=== PATIENT | female | born 1955 | race Caucasian/White ===

== ENCOUNTER 2018-07-21 13:39 | Outpatient (CLI) | payer OTHER ==
--- NOTE | 2018-07-21 15:35 | ULT ---
BILATERAL CAROTID DUPLEX ULTRASOUND: HISTORY: TIA. FINDINGS: A small amount of plaque is seen in the carotid bulbs. The peak systolic velocity in the right ICA measures 85 cm/s with an end-diastolic velocity of 26 cm/ s and a systolic ratio of 0.84. The peak systolic velocity in the left ICA measures 68 cm/s with an end-diastolic velocity of 19 cm/s and a systolic ratio of 0.86. Flow in both vertebral arteries remains antegrade. IMPRESSION: No evidence of hemodynamically significant stenosis. POS: [facility]
== END 2018-07-21 13:40 | disposition home or self-care (01) ==
LOC: ULT 13:39
PROVIDERS: ATTEND Family Medicine
DX: G45.9 Transient cerebral ischemic attack, unspecified (principal); I08.1 Rheumatic disorders of both mitral and tricuspid valves; I31.3 Pericardial effusion (noninflammatory)
CPT/HCPCS: 93306; 93880

== ENCOUNTER 2018-10-12 09:59 | Emergency (ER) | payer OTHER, SELFPAY ==
[2018-10-12 10:33] LABS: Bilirubin Negative (Negative); Blood, Urine Negative (Negative); Clarity CLEAR (Clear); Glucose, Urine (Dipstick) Negative (Negative); Leukocyte Moderate (Negative); Nitrite Negative (Negative); Protein, Urine (Dipstick) Negative (Neg-Trace); Specific Gravity, Urine 1.004 (1.002-1.036); Urobilinogen 0.2 mg/dL (0.2-1.0); pH, Urine 7.5 (5.0-9.0)
[2018-10-12 10:34] LABS: Bacteria/HPF None Seen HPF (None Seen); Hyaline Casts/LPF 0-3 HYALINE CAST LPF (0-3 Hyaline); RBC/HPF 0-3 HPF (0-3); Squamous Epithelial 0-3 HPF (0-3)
--- NOTE | 2018-10-12 11:48 | CT ---
CT LUMBAR SPINE NONCONTRAST: 10/12/2018 HISTORY: A 63-year-old female with low back pain and right lumbar radiculopathy. COMPARISON: None. FINDINGS: The right kidney is atrophic. Minimally dilated left renal collecting system. There are five lumbar type vertebrae. Vertebral body heights are maintained. Mild disk space narrowing at L4-L5. Modera te disk space narrowing at L5-S1. The rest of the disk spaces are maintained. No large endplate mar ginal osteophytes. T12-L1: Normal. L1-L2: Essentially normal. L2-L3: Mild degenerative facet changes. No high-grade central or neural foraminal stenosis. Mild d iffuse disk bulge. L3-L4: Mild diffuse disk bulge. Mild to moderate ligamentum flavum thickening. Mild to moderate bi lateral degenerative facet hypertrophy. Mild central spinal canal stenosis. Mild bilateral neural f oraminal stenosis. L4-L5: Very severe bilateral degenerative facet disease causes a grade 1 anterolisthesis of L4 on L5 . No pars interarticularis defects. Severe ligamentum flavum thickening. Severe central spinal can al stenosis. Moderate bilateral neural foraminal stenosis. L5-S1: Moderate to severe bilateral degenerative facet changes. No central stenosis. Mild to moder ate right neural foraminal stenosis. Moderate left neural foraminal stenosis. IMPRESSION: 1. At L4-L5, there is severe central spinal canal stenosis due to grade 1 spondylolisthesis, which i s due to very severe facet osteoarthrosis. 2. Atrophy of the right kidney. POS: [facility]
== END 2018-10-12 12:56 | disposition home or self-care (01) ==
LOC: ERS 09:59
DX: M48.061 Spinal stenosis, lumbar region without neurogenic claudication (principal); E06.3 Autoimmune thyroiditis; E03.9 Hypothyroidism, unspecified; E78.5 Hyperlipidemia, unspecified; I10 Essential (primary) hypertension
CPT/HCPCS: 72131; 81003; 81015

== ENCOUNTER 2020-10-27 15:31 | Emergency (ER) | payer MEDICARE, SELFPAY ==
[2020-10-27 23:40] LABS: SARS-CoV-2 MS2 Positive; SARS-CoV-2 N Gene Positive; SARS-CoV-2 S Gene Positive; SARS-CoV-2 by NAA DETECTED (NotDetected); SARS-CoV-2 orf1ab Positive
== END 2020-10-27 16:15 | disposition home or self-care (01) ==
LOC: ERS 15:31
DX: U07.1 COVID-19 (principal); E03.9 Hypothyroidism, unspecified; I10 Essential (primary) hypertension; E78.5 Hyperlipidemia, unspecified
CPT/HCPCS: 99283; U0003; 87635

== ENCOUNTER 2020-11-04 06:58 | Emergency (ER) | payer MEDICARE | END 2020-11-04 09:15 | disposition home or self-care (01) | LOC: ERS 06:58 | DX: U07.1 COVID-19 (principal); I11.0 Hypertensive heart disease with heart failure; I50.30 Unspecified diastolic (congestive) heart failure; E03.9 Hypothyroidism, unspecified; E78.5 Hyperlipidemia, unspecified; Z79.899 Other long term (current) drug therapy | CPT/HCPCS: 99284 ==

== ENCOUNTER 2020-11-06 08:48 | Inpatient (IN) | payer MEDICARE ==
--- NOTE | 2020-11-06 09:32 | RAD ---
Chest AP view INDICATION: History of shortness of breath with Covid positive diagnosis COMPARISON: Prior exam dated August 10, 2013 FINDINGS: Lungs: There are interstitial and airspace opacities in the left lower lobe and right lower lobe dayana picious for pneumonia Cardiac silhouette: There is mild cardiomegaly Pulmonary vasculature: Normal Pleural spaces: No pleural effusion or pneumothorax is demonstrated. Upper abdomen: No abnormality seen. Osseous structures: No acute osseous abnormality. Additional findings: None. IMPRESSION: Bilateral lower lobe pneumonia. Mild cardiomegaly without evidence of cardiac decompensation.
[2020-11-06] MEDS ORDERED: Azithromycin 500 MG VIAL ONE (09:35)
[2020-11-06] MEDS ORDERED: Dexamethasone 10 MG/ML VIAL ONE (09:35)
[2020-11-06 09:56] LABS: Hemoglobin 15.7 g/dL (12.0-16.0); Mean Corpuscular HGB CONC 33.1 g/dL (32.0-36.0); Mean Corpuscular Hemoglobin 32.3 pg (27.0-31.0); Mean Corpuscular Volume 97.6 fL (78.0-98.0); Platelet Count 213 thou/uL (130-400); RBC Distribution Width 11.9 % (11.5-14.5); Red Blood Cell (RBC) Count 4.87 mill/uL (4.20-5.40); White Blood Cell (WBC) Count 15.7 thou/uL (4.8-10.8)
[2020-11-06 10:10] LABS: ALT (SGPT) 27 U/L (8-55); AST (SGOT) 36 U/L (5-34); Albumin 3.6 g/dL (3.4-4.8); Alkaline Phosphatase 80 U/L (40-110); Anion Gap 16 mmol/L (10-20); BUN (Urea Nitrogen) 23 mg/dL (9.8-20.1); Bilirubin, Total 0.5 mg/dL (0.2-1.2); Calc. Creatinine Clearance 0 mL/min (70-130); Calcium 8.6 mg/dL (7.8-10.44); Carbon Dioxide 23 mmol/L (23-31); Chloride 101 mmol/L (98-107); Globulin 3.1 g/dL (2.4-3.5); Glucose 125 mg/dL (80-115); Potassium 3.7 mmol/L (3.5-5.1); Protein, Total 6.7 g/dL (6.0-8.3); Sodium 136 mmol/L (136-145)
[2020-11-06 10:20] LABS: MDiff Complete? YES; Monocytes 9 % (0-10); Neutrophil 90 % (42-75); Platelet Morphology Comment Appears Adequate; Reactive Lymphocytes 1 % (0-10)
[2020-11-06 10:54] LABS: Bilirubin Negative (Negative); Blood, Urine Negative (Negative); Clarity Clear (Clear); Glucose, Urine (Dipstick) Normal (Negative); Ketone, Urine Negative (Negative); Leukocyte 250 Leu/uL (Negative); Nitrite Negative (Negative); Protein, Urine (Dipstick) 100 mg/dL (Neg-Trace); RBC/HPF 0-3 HPF (0-3); Specific Gravity, Urine 1.022 (1.002-1.036); Squamous Epithelial 0-3 HPF (0-3)
[2020-11-06 11:01] LABS: Bacteria/HPF Rare-Few HPF (None Seen)
[2020-11-06] MEDS ORDERED: Ondansetron PF 4 MG/2 ML Vial IVP PRN (13:15)
[2020-11-06] MEDS ORDERED: Ondansetron ODT 4 MG TAB SL PRN (13:15)
--- NOTE | 2020-11-06 13:31 | PDOC.HHP ---
Hospitalist HPI - History of Present Illness Shortness of breath History of Present Illness: Ms. Mendoza is a 65-year-old female with a past medical history of hypothyroidism, hypertension, hyperlipidemia, TIA, congestive heart failure, chronic kidney disease who presented to the emergency room for shortness of breath with COVID-19 positive status. Patient reports that her symptoms started with nausea, vomiting and diarrhea approximately 1 week ago, however her symptoms of cough shortness of breath myalgias and subjective fevers began a few days later. She states that her respiratory symptoms worsened and she presented to the emergency room on 11/04 but at that time was maintaining her oxygenation at 97% on room air so was discharged home. Patient reports that over the past 2 days she has had worsening of her breathing and increasing shortness of breath even at rest prompting her to represent. In emergency room initial vital signs 150/78, 102, 70, 21, 76% on room air. Patient's respiratory status greatly improved to 96% on room air on 4 L nasal cannula. EKG showed normal sinus rhythm with inverted T waves but no ST changes. Initial troponin 0 0.010. Chest x-ray showed diffuse bilateral patchy infiltrates and mild cardiomegaly. BNP 205. H/H 15.7/47.5. WBC 15.7. BUN/CR 23/1.79. Sodium 136, potassium 3.7. Glucose 125. AST/ALT 36/27, T bili 0.5, D-dimer 0.99. Patient received azithromycin and dexamethasone in the emergency room. She admitted to the hospital service for further management of her COVID- 19 pneumonia. Hospitalist ROS - Review of Systems Constitutional: reports: fever, chills, weakness, malaise Eyes: denies: pain, vision change, conjunctivae inflammation, eyelid inflammation, redness, other ENT: reports: nose congestion, throat pain. denies: ear pain, ear discharge, nose pain, nose discharge, mouth pain, mouth swelling, throat swelling, other Respiratory: reports: cough, dry, shortness of breath, SOB with excertion. denies: hemoptysis, pleuritic pain, sputum, wheezing, other Cardiovascular: denies: chest pain, palpitations, orthopnea, paroxysmal noc. dyspnea, edema, light headedness, other Gastrointestinal: denies: nausea, vomiting, abdominal pain, diarrhea, constipation, melena, hematochezia, other Genitourinary: denies: dysuria, frequency, incontinence, hematuria, retention, other Musculoskeletal: denies: neck pain, shoulder pain, arm pain, back pain, hand pain, leg pain, foot pain, other Skin: denies: rash, lesions, sukhwinder, bruising, other Neurological: denies: weakness, numbness, incoordination, change in speech, confusion, seizures, other - Medication Medications: All medications include Albuterol Bupropion Clonidine Clopidogrel Coreg Dexamethasone Hydralazine Klor-Con Levothyroxine Zofran Allergy to lisinopril which causes angioedema Hospitalist History - Past Medical History Other Medical History: Past medical history includes Hypothyroidism Hypertension Congestive heart failure Hyperlipidemia TIA Chronic kidney disease stage IV Remote methamphetamine use, tobacco use - Past Surgical History Other Surgical History: Past surgical history includes Carpal tunnel sertraline Hysterectomy Oophorectomy - Family History Other Family History: Denies family history of cardiac disease or cancer - Social History Smoking Status: Former smoker Tobacco Type: cigarettes Alcohol: reports: Rare Drugs: reports: none (Former methamphetamine abuse) Living Situation: Alone Activity level: independent ambulation - Exam General Appearance: NAD, awake alert General - other findings: Patient appears comfortable on 4 L nasal cannula Eye: PERRL, anicteric sclera ENT: normocephalic atraumatic, no oropharyngeal lesions, moist mucosa Neck: supple, symmetric, no JVD, no thyromegaly, no lymphadenopathy, no carotid bruit Heart: RRR, no murmur, no gallops, no rubs, normal peripheral pulses Respiratory: normal chest expansion, no tachypnea Respiratory - other findings: Rales throughout Gastrointestinal: soft, non-tender, non-distended, normal bowel sounds, no palpable masses, no hepatomegaly, no splenomegaly, no bruit Extremities: no cyanosis, no clubbing, no edema Skin: normal turgor, no lesions, no rashes Neurological: cranial nerve grossly intact, normal sensation to touch, no weakness, no focal deficits, no new deficit Musculoskeletal: normal tone, normal strength, no muscle wasting Psychiatric: normal affect, normal behavior, A&O x 3 Hospitalist Results - Labs Result Diagrams: 11/06/20 09:37 11/06/20 09:37 Lab results: WBC 15.7 thou/uL (4.8-10.8) H 11/06/20 09:37 Hgb 15.7 g/dL (12.0-16.0) 11/06/20 09:37 Hct 47.5 % (36.0-47.0) H 11/06/20 09:37 MCV 97.6 fL (78.0-98.0) 11/06/20 09:37 Plt Count 213 thou/uL (130-400) 11/06/20 09:37 Sodium 136 mmol/L (136-145) 11/06/20 09:37 Potassium 3.7 mmol/L (3.5-5.1) 11/06/20 09:37 Chloride 101 mmol/L (98-107) 11/06/20 09:37 Carbon Dioxide 23 mmol/L (23-31) 11/06/20 09:37 BUN 23 mg/dL (9.8-20.1) H 11/06/20 09:37 Creatinine 1.79 mg/dL (0.6-1.1) H 11/06/20 09:37 Glucose 125 mg/dL (80-115) H 11/06/20 09:37 Lactic Acid 1.4 mmol/L (0.5-2.2) 11/06/20 09:37 Calcium 8.6 mg/dL (7.8-10.44) 11/06/20 09:37 Total Bilirubin 0.5 mg/dL (0.2-1.2) 11/06/20 09:37 AST 36 U/L (5-34) H 11/06/20 09:37 ALT 27 U/L (8-55) 11/06/20 09:37 Alkaline Phosphatase 80 U/L (40-110) 11/06/20 09:37 Troponin I Less than 0.010 ng/mL (< 0.028) 11/06/20 09:37 B-Natriuretic Peptide 204.9 pg/mL (0-100) H 11/06/20 09:37 Serum Total Protein 6.7 g/dL (6.0-8.3) 11/06/20 09:37 Albumin 3.6 g/dL (3.4-4.8) 11/06/20 09:37 Urine Ketones Negative mg/dL (Negative) 11/06/20 10:08 Urine Blood Negative (Negative) 11/06/20 10:08 Urine Nitrite Negative (Negative) 11/06/20 10:08 Ur Leukocyte Esterase 250 Sonia/uL (Negative) A 11/06/20 10:08 Urine RBC 0-3 HPF (0-3) 11/06/20 10:08 Urine WBC 7-10 HPF (0-3) A 11/06/20 10:08 Ur Squamous Epith Cells 0-3 HPF (0-3) 11/06/20 10:08 Urine Bacteria Rare-Few HPF (None Seen) 11/06/20 10:08 Hospitalist H&P A/P - Plan Plan: COVID-19 pneumonia 65-year-old female past medical history of hypothyroidism, hypertension, hyperlipidemia, diastolic heart failure, TIA, chronic kidney disease presents with worsening shortness of breath found to have COVID-19. Symptoms began approximately 7 days ago and have been progressive. Chest x-ray showed bilateral patchy infiltrates and mild cardiomegaly. White blood cell count 15.7. Patient presented with O2 sat of 76% on room air, is now comfortable saturating at 96% on 4 L nasal cannula. Patient received dexamethasone and azithromycin in the emergency room. Plan -Decadron, will see patient is candidate for remdesivir -Ceftriaxone, azithromycin -Supplemental oxygen -Tylenol, Robitussin -Vitamin C, zinc -We will obtain baseline inflammatory markers Acute hypoxic respiratory failure Patient with acute hypoxic respiratory failure secondary to moderate to severe COVID-19 pneumonia. Presented with O2 sat of 76% on room air. Patient with new oxygen requirement now on 4 L of oxygen nasal cannula to maintain O2 sat. We will continue supplemental oxygen and closely monitor respiratory status. Rajani tment as above. Plan -Supplemental oxygen -Treatment as above -Closely monitor respiratory status Chronic kidney disease History of CKD with baseline creatinine approximately 1.7. BUN/CR 23/1.79. Plan Trend kidney function Avoid nephrotoxic agents when possible Renal dosing as appropriate Hypothyroidism History of hypothyroidism, will continue home levothyroxine. Hypertension History of hypertension on home hydralazine and clonidine. We will continue these. Diastolic heart failure History of diastolic heart failure. On record review echocardiogram from 2018 shows EF of 50 to 55%. Patient reports she has mild fluid symptoms and occasionally gets lower extremity edema. Feels as though she is dry due to her diarrheal symptoms. BNP 205. Plan Monitor fluid status History of TIA Patient with remote history of TIA, is maintained on Plavix. We will continue while inpatient. DVT prophylaxis SQ heparin Full code Case discussed with Dr. Tomlin
[2020-11-06] MEDS ORDERED: Loperamide HCl 2 MG CAP PO PRN ×2 (13:43)
[2020-11-06] MEDS ORDERED: Acetaminophen 650 MG Suppository PR PRN (13:43)
[2020-11-06 13:44] VITALS: BMI 27.1
[2020-11-06] MEDS ORDERED: Guaifenesin DM 100-10/5 ML UDCUP PO PRN (13:49)
[2020-11-06 14:54] LABS: Ferritin 1277.35 ng/mL (10-291); Thyroid Stimulating Hormone 0.1747 uIU/mL (0.35-4.94)
[2020-11-06] MEDS: Azithromycin 500 MG in Sodium Chloride 0.9% 250 ML 250 ML IVPB SCH (15:17)
[2020-11-06] MEDS: Heparin 5,000 UNITS/ML VIAL SC SCH ×2 (15:17→20:57)
--- NOTE | 2020-11-06 15:56 | PDOC.BPN ---
- Brief Progress Note Encounter Date: 11/06/20 Encounter Time: 15:55 Chart reviewed, orders reviewed and patient discussed with GAIL Benitez. Pt with multilobar pneumonia with sx onset a week ago. She was significantly hypoxic and responded well to oxygen supplementation. She is written for steroids, remdesivir, convalescent plasma. Monitor closely for any change in respiratory status.
[2020-11-06] MEDS ORDERED: REMDESIVIR (EUA) 200 MG in Sodium Chloride 0.9% 250 ML 210 ML IV SCH (16:00)
[2020-11-06] MEDS: cefTRIAXone\\ROCEPHIN 1 GM in Sodium Chloride 0.9% 100 ML IVPB SCH (16:28)
[2020-11-06] MEDS: hydrALAZINE 20 MG/ML VIAL SLOW IVP PRN (16:28)
[2020-11-06] MEDS ORDERED: cloNIDine 0.2 MG TAB PO PRN (18:19)
[2020-11-06] MEDS ORDERED: Albuterol 200 PUFF (6.7GM INHALER) INH PRN (18:39)
[2020-11-06] MEDS: hydrALAZINE 25 MG TAB PO SCH (20:54)
[2020-11-06] MEDS: Rosuvastatin 20 MG TAB PO SCH (20:55)
[2020-11-06] MEDS: Carvedilol 6.25 MG TAB PO SCH (20:55)
[2020-11-06] MEDS: traMADol HCl 50 MG TAB PO SCH ×2 (21:11→21:19)
[2020-11-06] MEDS: Lidocaine 5% Patch TD SCH (21:14)
[2020-11-06] MEDS ORDERED: Lidocaine Patch Removal 1 EACH TOP SCH (21:15)
[2020-11-06] MEDS: Acetaminophen 325 MG TAB PO PRN (21:21)
--- NOTE | 2020-11-06 22:30 | CT ---
CT BRAIN NONCONTRAST: DATE: 11/06/2020 HISTORY: 65-year-old female with severe headache FINDINGS: There is no evidence of acute intra-axial or extra-axial hemorrhage. There is no midline shift or any other mass effect. There is no extra-axial fluid collection. There is no evidence of obstructive hydrocephalus. Calvarium is intact. IMPRESSION: No acute intracranial findings.
--- NOTE | 2020-11-06 22:42 | PDOC.EVN ---
Event Note - Event Note Event Note: Was called by nursing that patient was having severe hip pain and could hear patient moaning in background. No known injury to hip. One time dose of pain medication ordered along with lidocaine patch.
--- NOTE | 2020-11-06 22:43 | PDOC.EVN ---
Event Note - Event Note Event Note: Nursing called and said that patient was having severe headache and it was the "worst of her life". Stat head CT ordered at this time. No focal deficits or neurological changes noted.
[2020-11-06] MEDS ORDERED: HYDROcodone/Acetaminophen 5/325 mg Tablet PO SCH (23:15)
[2020-11-07] MEDS: Levothyroxine Sodium 75 MCG TAB PO SCH (05:28)
[2020-11-07] MEDS: Acetaminophen 325 MG TAB PO PRN ×2 (05:28→16:48)
[2020-11-07] MEDS: hydrALAZINE 20 MG/ML VIAL SLOW IVP PRN (05:30)
[2020-11-07 07:02] LABS: #Lymphocytes 0.7 thou/uL (1.20-3.40); #Monocytes 0.8 thou/uL (0.11-0.59); #Neutrophils 15.3 thou/uL (1.40-6.50); %Basophils 0.1 % (0.0-1.0); %Eosinophils 0.1 % (0.0-10.0); %Lymphocytes 4.4 % (21.0-51.0); %Monocytes 4.8 % (0.0-10.0); %Neutrophils 90.6 % (42.0-75.0); Hemoglobin 15.2 g/dL (12.0-16.0); Mean Corpuscular Volume 96.9 fL (78.0-98.0); Mean Platelet Volume 7.7 fL (7.4-10.4); Platelet Count 289 thou/uL (130-400); Red Blood Cell (RBC) Count 4.75 mill/uL (4.20-5.40); White Blood Cell (WBC) Count 16.9 thou/uL (4.8-10.8)
[2020-11-07 07:26] LABS: Anion Gap 13 mmol/L (10-20); BUN (Urea Nitrogen) 25 mg/dL (9.8-20.1); Calc. Creatinine Clearance 37 mL/min (70-130); Calcium 8.4 mg/dL (7.8-10.44); Carbon Dioxide 26 mmol/L (23-31); Chloride 103 mmol/L (98-107); Glucose 80 mg/dL (80-115); Potassium 3.8 mmol/L (3.5-5.1); Sodium 138 mmol/L (136-145)
[2020-11-07] MEDS: Heparin 5,000 UNITS/ML VIAL SC SCH ×3 (08:01→20:15)
[2020-11-07] MEDS: Zinc Sulfate 220 MG CAP PO SCH (08:02)
[2020-11-07] MEDS: Bupropion 150 MG SR TAB PO SCH (08:02)
[2020-11-07] MEDS: hydrALAZINE 25 MG TAB PO SCH ×3 (08:02→20:14)
[2020-11-07] MEDS: Carvedilol 6.25 MG TAB PO SCH ×2 (08:02→20:14)
[2020-11-07] MEDS: Ascorbic Acid 500 mg Chewable Tablet PO SCH (08:02)
[2020-11-07] MEDS: Clopidogrel Bisulfate 75 MG TAB PO SCH (08:03)
[2020-11-07] MEDS: Lidocaine Patch Removal 1 EACH TOP SCH (08:03)
[2020-11-07] MEDS ORDERED: FLU VACC QS2020-21(65YR UP)/PF 240 MCG/0.7 ML SYRINGE IM ONE (09:00)
[2020-11-07] MEDS ORDERED: Clopidogrel Bisulfate 75 MG TAB PO SCH (09:00)
[2020-11-07] MEDS: Dexamethasone 4 MG TAB PO SCH (10:38)
[2020-11-07] MEDS: Azithromycin 500 MG in Sodium Chloride 0.9% 250 ML 250 ML IVPB SCH (14:31)
[2020-11-07] MEDS ORDERED: REMDESIVIR (EUA) 100 MG in Sodium Chloride 0.9% 250 ML 230 ML IV SCH (16:00)
[2020-11-07] MEDS: cefTRIAXone\\ROCEPHIN 1 GM in Sodium Chloride 0.9% 100 ML IVPB SCH (16:05)
[2020-11-07] MEDS: cloNIDine 0.1 MG TAB PO SCH (20:14)
[2020-11-07] MEDS: Lidocaine 5% Patch TD SCH (20:15)
[2020-11-07] MEDS: Rosuvastatin 20 MG TAB PO SCH (20:15)
[2020-11-08] MEDS: cloNIDine 0.1 MG TAB PO SCH ×2 (06:14→11:10)
[2020-11-08] MEDS: Levothyroxine Sodium 75 MCG TAB PO SCH (06:14)
[2020-11-08 07:39] LABS: Anion Gap 17 mmol/L (10-20); BUN (Urea Nitrogen) 26 mg/dL (9.8-20.1); Calc. Creatinine Clearance 40 mL/min (70-130); Calcium 8.4 mg/dL (7.8-10.44); Carbon Dioxide 23 mmol/L (23-31); Chloride 102 mmol/L (98-107); Glucose 97 mg/dL (80-115); Potassium 3.5 mmol/L (3.5-5.1); Sodium 138 mmol/L (136-145)
[2020-11-08 07:51] LABS: Hemoglobin 15.4 g/dL (12.0-16.0); Mean Corpuscular HGB CONC 32.8 g/dL (32.0-36.0); Mean Corpuscular Hemoglobin 31.9 pg (27.0-31.0); Mean Corpuscular Volume 97.3 fL (78.0-98.0); Mean Platelet Volume 7.8 fL (7.4-10.4); Platelet Count 275 thou/uL (130-400); Red Blood Cell (RBC) Count 4.82 mill/uL (4.20-5.40); White Blood Cell (WBC) Count 9.9 thou/uL (4.8-10.8)
[2020-11-08] MEDS: Zinc Sulfate 220 MG CAP PO SCH (09:02)
[2020-11-08] MEDS: Bupropion 150 MG SR TAB PO SCH (09:02)
[2020-11-08] MEDS: Ascorbic Acid 500 mg Chewable Tablet PO SCH (09:02)
[2020-11-08] MEDS: Carvedilol 6.25 MG TAB PO SCH ×2 (09:02→20:56)
[2020-11-08] MEDS: Clopidogrel Bisulfate 75 MG TAB PO SCH (09:02)
[2020-11-08] MEDS: hydrALAZINE 25 MG TAB PO SCH ×3 (09:02→20:55)
[2020-11-08] MEDS: Dexamethasone 4 MG TAB PO SCH (09:02)
[2020-11-08] MEDS: Heparin 5,000 UNITS/ML VIAL SC SCH ×3 (09:03→20:53)
[2020-11-08] MEDS: Lidocaine Patch Removal 1 EACH TOP SCH (10:06)
[2020-11-08 10:20] LABS: Band 3 % (5-11); Lymphocytes 4 % (21-51); MDiff Complete? YES; Monocytes 7 % (0-10); Neutrophil 85 % (42-75); RBC Morphology Normal; Reactive Lymphocytes 1 % (0-10)
[2020-11-08] MEDS: Acetaminophen 325 MG TAB PO PRN (11:10)
[2020-11-08] MEDS: cefTRIAXone\\ROCEPHIN 1 GM in Sodium Chloride 0.9% 100 ML IVPB SCH (14:19)
[2020-11-08] MEDS: Azithromycin 250 MG TAB PO SCH (14:19)
--- NOTE | 2020-11-08 17:32 | PDOC.HOSPP ---
- Subjective Encounter Date: 11/07/20 Encounter Time: 18:00 Subjective: Patient seen for follow-up for COVID-19 pneumonia. She reports cough. - Objective Vital Signs & Weight: Vital Signs (12 hours) Temp Pulse Resp BP Pulse Ox 11/08/20 16:55 98.4 F 67 20 151/93 H 94 L 11/08/20 13:20 97.6 F 70 20 153/76 H 96 11/08/20 11:21 98.1 F 65 20 184/82 H 92 L 11/08/20 08:53 98.6 F 73 18 191/83 H 92 L 11/08/20 08:00 92 L Weight Weight 144 lb I&O: 11/07/20 11/08/20 11/09/20 06:59 06:59 06:59 Intake Total 1100 1680 Balance 1100 1680 Result Diagrams: 11/08/20 07:09 11/08/20 07:09 Additional Labs: I reviewed patient's labs and MAR Hospitalist ROS - Review of Systems Respiratory: reports: cough, dry. denies: shortness of breath, hemoptysis, SOB with excertion, pleuritic pain, sputum, wheezing Cardiovascular: denies: chest pain, palpitations, orthopnea, paroxysmal noc. dyspnea, edema, light headedness - Medication Medications: Active Medications Generic Name Dose Route Start Last Admin Trade Name Freq PRN Reason Stop Dose Admin Acetaminophen 650 mg 11/06/20 13:43 11/08/20 11:10 Acetaminophen 325 Mg Tab PO 650 mg Q4H PRN Administration Headache/Fever/Mild Pain (1-3) Ascorbic Acid 1,000 mg 11/07/20 09:00 11/08/20 09:02 Ascorbic Acid 500 Mg Chewable Tablet PO 1,000 mg DAILY NOEL Administration Azithromycin 500 mg 11/08/20 15:00 11/08/20 14:19 Azithromycin 250 Mg Tab PO 11/15/20 15:01 500 mg 1500 NOEL Administration Bupropion HCl 150 mg 11/07/20 09:00 11/08/20 09:02 Bupropion 150 Mg Sr Tab PO 150 mg DAILY NOEL Administration Carvedilol 12.5 mg 11/06/20 21:00 11/08/20 09:02 Carvedilol 6.25 Mg Tab PO 12.5 mg BID NOEL Administration Clonidine 0.1 mg 11/07/20 21:00 11/08/20 11:10 Clonidine 0.1 Mg Tab PO 0.1 mg TID NOEL Administration Clopidogrel Bisulfate 75 mg 11/07/20 09:00 11/08/20 09:02 Clopidogrel Bisulfate 75 Mg Tab PO 75 mg DAILY NOEL Administration Dexamethasone 6 mg 11/07/20 08:00 11/08/20 09:02 Dexamethasone 4 Mg Tab PO 6 mg QAM-WM NOEL Administration Guaifenesin/Dextromethorphan 15 ml 11/06/20 13:49 11/06/20 21:13 Guaifenesin Dm 100-10/5 Ml Udcup PO 15 ml Q4H PRN Administration Cough Heparin Sodium (Porcine) 5,000 units 11/06/20 15:00 11/08/20 14:19 Heparin 5,000 Units/Ml Vial SC 5,000 units TID NOEL Administration Hydralazine HCl 10 mg 11/06/20 13:48 11/07/20 05:30 Hydralazine 20 Mg/Ml Vial SLOW IVP 10 mg Q4H PRN Administration SBP GREATER THAN 160 Hydralazine HCl 100 mg 11/06/20 21:00 11/08/20 14:19 Hydralazine 25 Mg Tab PO 100 mg TID NOEL Administration Ceftriaxone Sodium 1 gm/ 100 mls @ 200 mls/hr 11/06/20 16:00 11/08/20 14:19 Sodium Chloride IVPB 100 mls Q24HR NOEL Administration Levothyroxine Sodium 75 mcg 11/07/20 06:00 11/08/20 06:14 Levothyroxine Sodium 75 Mcg Tab PO 75 mcg 0600 NOEL Administration Lidocaine 1 patch 11/06/20 21:00 11/07/20 20:15 Lidocaine 5% Patch TD 1 patch 2100 NOEL Administration Miscellaneous Medication 1 each 11/07/20 09:00 11/08/20 10:06 Lidocaine Patch Removal 1 Each TOP 1 each 0900 NOEL Administration Rosuvastatin Calcium 40 mg 11/06/20 21:00 11/07/20 20:15 Rosuvastatin 20 Mg Tab PO 40 mg HS NOEL Administration Zinc Sulfate 220 mg 11/07/20 09:00 11/08/20 09:02 Zinc Sulfate 220 Mg Cap PO 220 mg DAILY NOEL Administration - Exam General Appearance: awake alert Eye: anicteric sclera ENT: moist mucosa Neck: supple Heart: RRR Respiratory: CTAB Gastrointestinal: soft, non-tender Skin: no rashes Psychiatric: normal affect, normal behavior Hosp A/P - Plan -Assessment/plan COVID-19 pneumonia Continue dexamethasone, patient is also being started on remdesivir. Continue vitamin C and zinc. Acute hypoxic respiratory failure Secondary to COVID-19 pneumonia, provide oxygen as needed. Chronic kidney disease Stable Hypothyroidism Continue levothyroxine Hypertension Monitor vital signs and titrate antihypertensives as needed. Diastolic heart failure Stable History of TIA Continue Plavix
--- NOTE | 2020-11-08 17:42 | PDOC.HOSPP ---
- Subjective Encounter Date: 11/08/20 Encounter Time: 11:00 Subjective: Patient seen for follow-up pneumonia secondary to COVID-19 infection. Reports feeling better. - Objective Vital Signs & Weight: Vital Signs (12 hours) Temp Pulse Resp BP Pulse Ox 11/08/20 16:55 98.4 F 67 20 151/93 H 94 L 11/08/20 13:20 97.6 F 70 20 153/76 H 96 11/08/20 11:21 98.1 F 65 20 184/82 H 92 L 11/08/20 08:53 98.6 F 73 18 191/83 H 92 L 11/08/20 08:00 92 L Weight Weight 144 lb I&O: 11/07/20 11/08/20 11/09/20 06:59 06:59 06:59 Intake Total 1100 1680 Balance 1100 1680 Result Diagrams: 11/08/20 07:09 11/08/20 07:09 Additional Labs: Labs and MAR reviewed by wy Hospitalist ROS - Review of Systems Respiratory: reports: cough, dry Cardiovascular: denies: chest pain, palpitations, orthopnea, paroxysmal noc. dyspnea, edema, light headedness Gastrointestinal: denies: nausea, vomiting, abdominal pain, diarrhea, constipation, melena, hematochezia - Medication Medications: Active Medications Generic Name Dose Route Start Last Admin Trade Name Freq PRN Reason Stop Dose Admin Acetaminophen 650 mg 11/06/20 13:43 11/08/20 11:10 Acetaminophen 325 Mg Tab PO 650 mg Q4H PRN Administration Headache/Fever/Mild Pain (1-3) Ascorbic Acid 1,000 mg 11/07/20 09:00 11/08/20 09:02 Ascorbic Acid 500 Mg Chewable Tablet PO 1,000 mg DAILY NOEL Administration Azithromycin 500 mg 11/08/20 15:00 11/08/20 14:19 Azithromycin 250 Mg Tab PO 11/15/20 15:01 500 mg 1500 NOEL Administration Bupropion HCl 150 mg 11/07/20 09:00 11/08/20 09:02 Bupropion 150 Mg Sr Tab PO 150 mg DAILY NOEL Administration Carvedilol 12.5 mg 11/06/20 21:00 11/08/20 09:02 Carvedilol 6.25 Mg Tab PO 12.5 mg BID NOEL Administration Clonidine 0.1 mg 11/07/20 21:00 11/08/20 11:10 Clonidine 0.1 Mg Tab PO 0.1 mg TID NOEL Administration Clopidogrel Bisulfate 75 mg 11/07/20 09:00 11/08/20 09:02 Clopidogrel Bisulfate 75 Mg Tab PO 75 mg DAILY NOEL Administration Dexamethasone 6 mg 11/07/20 08:00 11/08/20 09:02 Dexamethasone 4 Mg Tab PO 6 mg QAM-WM NOEL Administration Guaifenesin/Dextromethorphan 15 ml 11/06/20 13:49 11/06/20 21:13 Guaifenesin Dm 100-10/5 Ml Udcup PO 15 ml Q4H PRN Administration Cough Heparin Sodium (Porcine) 5,000 units 11/06/20 15:00 11/08/20 14:19 Heparin 5,000 Units/Ml Vial SC 5,000 units TID NOEL Administration Hydralazine HCl 10 mg 11/06/20 13:48 11/07/20 05:30 Hydralazine 20 Mg/Ml Vial SLOW IVP 10 mg Q4H PRN Administration SBP GREATER THAN 160 Hydralazine HCl 100 mg 11/06/20 21:00 11/08/20 14:19 Hydralazine 25 Mg Tab PO 100 mg TID NOEL Administration Ceftriaxone Sodium 1 gm/ 100 mls @ 200 mls/hr 11/06/20 16:00 11/08/20 14:19 Sodium Chloride IVPB 100 mls Q24HR NOEL Administration Levothyroxine Sodium 75 mcg 11/07/20 06:00 11/08/20 06:14 Levothyroxine Sodium 75 Mcg Tab PO 75 mcg 0600 NOEL Administration Lidocaine 1 patch 11/06/20 21:00 11/07/20 20:15 Lidocaine 5% Patch TD 1 patch 2100 NOEL Administration Miscellaneous Medication 1 each 11/07/20 09:00 11/08/20 10:06 Lidocaine Patch Removal 1 Each TOP 1 each 0900 NOEL Administration Rosuvastatin Calcium 40 mg 11/06/20 21:00 11/07/20 20:15 Rosuvastatin 20 Mg Tab PO 40 mg HS NOEL Administration Zinc Sulfate 220 mg 11/07/20 09:00 11/08/20 09:02 Zinc Sulfate 220 Mg Cap PO 220 mg DAILY NOEL Administration - Exam General Appearance: awake alert Eye: anicteric sclera ENT: moist mucosa Neck: supple Heart: RRR Respiratory: rhonchi Gastrointestinal: soft Extremities: no cyanosis Skin: no rashes Psychiatric: normal affect, normal behavior Hosp A/P - Plan -Assessment/plan COVID-19 pneumonia Patient is on dexamethasone and remdesivir. Continue vitamin C and zinc. Acute hypoxic respiratory failure Oxygen as needed Chronic kidney disease Stable Hypothyroidism Patient is on levothyroxine Hypertension Pressure is high, increase clonidine to 0.2 mg 3 times a day and give one-time dose of 0.1 mg clonidine. Diastolic heart failure Stable History of TIA Patient is on Plavix
[2020-11-08] MEDS ORDERED: cloNIDine 0.3 MG TAB PO SCH (17:45)
[2020-11-08] MEDS: Lidocaine 5% Patch TD SCH (20:53)
[2020-11-08] MEDS: cloNIDine 0.2 MG TAB PO SCH (20:55)
[2020-11-08] MEDS: Rosuvastatin 20 MG TAB PO SCH (20:55)
[2020-11-09] MEDS: Levothyroxine Sodium 75 MCG TAB PO SCH (05:00)
[2020-11-09] MEDS: cloNIDine 0.2 MG TAB PO PRN (05:33)
[2020-11-09] MEDS: hydrALAZINE 25 MG TAB PO SCH ×3 (08:29→20:34)
[2020-11-09] MEDS: Bupropion 150 MG SR TAB PO SCH (08:29)
[2020-11-09] MEDS: Heparin 5,000 UNITS/ML VIAL SC SCH ×3 (08:29→20:35)
[2020-11-09] MEDS: Carvedilol 6.25 MG TAB PO SCH ×2 (08:29→20:35)
[2020-11-09] MEDS: Dexamethasone 4 MG TAB PO SCH (08:30)
[2020-11-09] MEDS: Clopidogrel Bisulfate 75 MG TAB PO SCH (08:30)
[2020-11-09] MEDS: Ascorbic Acid 500 mg Chewable Tablet PO SCH (08:30)
[2020-11-09] MEDS: Zinc Sulfate 220 MG CAP PO SCH (08:31)
[2020-11-09] MEDS: cloNIDine 0.2 MG TAB PO SCH ×3 (08:31→20:35)
[2020-11-09] MEDS: Lidocaine Patch Removal 1 EACH TOP SCH (08:31)
[2020-11-09 08:48] LABS: #Monocytes 0.4 thou/uL (0.11-0.59); #Neutrophils 9.8 thou/uL (1.40-6.50); %Eosinophils 0.2 % (0.0-10.0); %Lymphocytes 8.6 % (21.0-51.0); %Monocytes 3.6 % (0.0-10.0); %Neutrophils 87.6 % (42.0-75.0); Hemoglobin 14.5 g/dL (12.0-16.0); Mean Corpuscular HGB CONC 32.2 g/dL (32.0-36.0); Mean Corpuscular Hemoglobin 31.4 pg (27.0-31.0); Mean Corpuscular Volume 97.5 fL (78.0-98.0); Mean Platelet Volume 7.4 fL (7.4-10.4); Platelet Count 300 thou/uL (130-400); RBC Distribution Width 11.8 % (11.5-14.5); Red Blood Cell (RBC) Count 4.62 mill/uL (4.20-5.40); White Blood Cell (WBC) Count 11.2 thou/uL (4.8-10.8)
[2020-11-09 08:56] LABS: Anion Gap 16 mmol/L (10-20); BUN (Urea Nitrogen) 27 mg/dL (9.8-20.1); Calc. Creatinine Clearance 39 mL/min (70-130); Calcium 8.6 mg/dL (7.8-10.44); Carbon Dioxide 24 mmol/L (23-31); Chloride 102 mmol/L (98-107); Glucose 109 mg/dL (80-115); Potassium 3.6 mmol/L (3.5-5.1); Sodium 138 mmol/L (136-145)
[2020-11-09] MEDS: Azithromycin 250 MG TAB PO SCH (15:16)
[2020-11-09] MEDS: cefTRIAXone\\ROCEPHIN 1 GM in Sodium Chloride 0.9% 100 ML IVPB SCH (16:02)
--- NOTE | 2020-11-09 16:15 | PDOC.HOSPP ---
- Subjective Encounter Date: 11/09/20 Encounter Time: 11:15 Subjective: Patient up in bed no complaints. Patient continues to be short of breath and becomes hypoxic on minimal exertion. - Objective Vital Signs & Weight: Vital Signs (12 hours) Temp Pulse Resp BP Pulse Ox 11/09/20 15:16 60 11/09/20 08:29 60 11/09/20 08:00 98.1 F 60 20 159/72 H 93 L 11/09/20 06:37 134/76 11/09/20 05:10 97.6 F 65 20 196/96 H 91 L Weight Weight 144 lb I&O: 11/08/20 11/09/20 11/10/20 06:59 06:59 06:59 Intake Total 1680 480 600 Balance 1680 480 600 Result Diagrams: 11/09/20 08:05 11/09/20 08:05 Hospitalist ROS - Review of Systems Respiratory: reports: cough, shortness of breath Gastrointestinal: denies: nausea, vomiting, abdominal pain, diarrhea, constipation, melena, hematochezia, other - Medication Medications: Active Medications Generic Name Dose Route Start Last Admin Trade Name Freq PRN Reason Stop Dose Admin Acetaminophen 650 mg 11/06/20 13:43 11/08/20 11:10 Acetaminophen 325 Mg Tab PO 650 mg Q4H PRN Administration Headache/Fever/Mild Pain (1-3) Ascorbic Acid 1,000 mg 11/07/20 09:00 11/09/20 08:30 Ascorbic Acid 500 Mg Chewable Tablet PO 1,000 mg DAILY NOEL Administration Azithromycin 500 mg 11/08/20 15:00 11/09/20 15:16 Azithromycin 250 Mg Tab PO 11/15/20 15:01 500 mg 1500 NOEL Administration Bupropion HCl 150 mg 11/07/20 09:00 11/09/20 08:29 Bupropion 150 Mg Sr Tab PO 150 mg DAILY NOEL Administration Carvedilol 12.5 mg 11/06/20 21:00 11/09/20 08:29 Carvedilol 6.25 Mg Tab PO 12.5 mg BID NOEL Administration Clonidine 0.2 mg 11/08/20 21:00 11/09/20 15:17 Clonidine 0.2 Mg Tab PO 0.2 mg TID NOEL Administration Clonidine 0.2 mg 11/09/20 05:26 11/09/20 05:33 Clonidine 0.2 Mg Tab PO 0.2 mg QID PRN Administration SBP Greater Than 170 Clopidogrel Bisulfate 75 mg 11/07/20 09:00 11/09/20 08:30 Clopidogrel Bisulfate 75 Mg Tab PO 75 mg DAILY NOEL Administration Dexamethasone 6 mg 11/07/20 08:00 11/09/20 08:30 Dexamethasone 4 Mg Tab PO 6 mg QAM-WM NOEL Administration Guaifenesin/Dextromethorphan 15 ml 11/06/20 13:49 11/06/20 21:13 Guaifenesin Dm 100-10/5 Ml Udcup PO 15 ml Q4H PRN Administration Cough Heparin Sodium (Porcine) 5,000 units 11/06/20 15:00 11/09/20 15:16 Heparin 5,000 Units/Ml Vial SC 5,000 units TID NOEL Administration Hydralazine HCl 10 mg 11/06/20 13:48 11/07/20 05:30 Hydralazine 20 Mg/Ml Vial SLOW IVP 10 mg Q4H PRN Administration SBP GREATER THAN 160 Hydralazine HCl 100 mg 11/06/20 21:00 11/09/20 15:16 Hydralazine 25 Mg Tab PO 100 mg TID NOEL Administration Ceftriaxone Sodium 1 gm/ 100 mls @ 200 mls/hr 11/06/20 16:00 11/09/20 16:02 Sodium Chloride IVPB 100 mls Q24HR NOEL Administration Levothyroxine Sodium 75 mcg 11/07/20 06:00 11/09/20 05:00 Levothyroxine Sodium 75 Mcg Tab PO 75 mcg 0600 NOEL Administration Lidocaine 1 patch 11/06/20 21:00 11/08/20 20:53 Lidocaine 5% Patch TD 1 patch 2100 NOEL Administration Miscellaneous Medication 1 each 11/07/20 09:00 11/09/20 08:31 Lidocaine Patch Removal 1 Each TOP 1 each 0900 NOEL Administration Rosuvastatin Calcium 40 mg 11/06/20 21:00 11/08/20 20:55 Rosuvastatin 20 Mg Tab PO 40 mg HS NOEL Administration Zinc Sulfate 220 mg 11/07/20 09:00 11/09/20 08:31 Zinc Sulfate 220 Mg Cap PO 220 mg DAILY NOEL Administration - Exam Respiratory: negative: CTAB, no wheezes, no rales, no ronchi, normal chest expansion, no tachypnea, normal percussion, rales, rhonchi, tachypneic, wheezes Gastrointestinal: negative: soft, non-tender, non-distended, normal bowel sounds, no palpable masses, no hepatomegaly, no splenomegaly, no bruit, no guarding, no rigidity, tender to palpation, distended, diminished bowl sounds, voluntary guarding Extremities: negative: no cyanosis, no clubbing, no edema, 1+ LE edema, 2+ LE edema, clubbing Hosp A/P - Plan COVID-19 pneumonia Patient is on dexamethasone and remdesivir. Continue vitamin C and zinc. Acute hypoxic respiratory failure Oxygen as needed Chronic kidney disease Stable Hypothyroidism Patient is on levothyroxine Hypertension Pressure is high, increase clonidine to 0.2 mg 3 times a day and give one-time dose of 0.1 mg clonidine. Diastolic heart failure Stable History of TIA Patient is on Plavix 11/09 we will order incentive spirometry. We will continue remdesivir and Decadron. We will decrease Synthroid to 50 MCG since patient's TSH was low. She initially was on 75 MCG.
[2020-11-09] MEDS: Rosuvastatin 20 MG TAB PO SCH (20:35)
[2020-11-09] MEDS: Lidocaine 5% Patch TD SCH (20:37)
[2020-11-10] MEDS: Levothyroxine Sodium 50 MCG TAB PO SCH (04:32)
[2020-11-10] MEDS: cloNIDine 0.2 MG TAB PO PRN (04:48)
[2020-11-10 06:38] LABS: #Monocytes 0.6 thou/uL (0.11-0.59); #Neutrophils 9.8 thou/uL (1.40-6.50); %Basophils 0.1 % (0.0-1.0); %Eosinophils 0.1 % (0.0-10.0); %Lymphocytes 8.5 % (21.0-51.0); %Neutrophils 86.2 % (42.0-75.0); Hemoglobin 13.8 g/dL (12.0-16.0); Mean Corpuscular HGB CONC 33.3 g/dL (32.0-36.0); Mean Corpuscular Hemoglobin 32.3 pg (27.0-31.0); Mean Corpuscular Volume 96.9 fL (78.0-98.0); Mean Platelet Volume 7.4 fL (7.4-10.4); Platelet Count 283 thou/uL (130-400); RBC Distribution Width 11.7 % (11.5-14.5); Red Blood Cell (RBC) Count 4.27 mill/uL (4.20-5.40); White Blood Cell (WBC) Count 11.3 thou/uL (4.8-10.8)
[2020-11-10 06:57] LABS: Anion Gap 15 mmol/L (10-20); BUN (Urea Nitrogen) 24 mg/dL (9.8-20.1); Calc. Creatinine Clearance 45 mL/min (70-130); Calcium 8.4 mg/dL (7.8-10.44); Carbon Dioxide 24 mmol/L (23-31); Chloride 101 mmol/L (98-107); Glucose 83 mg/dL (80-115); Sodium 136 mmol/L (136-145)
[2020-11-10] MEDS: Ascorbic Acid 500 mg Chewable Tablet PO SCH (08:17)
[2020-11-10] MEDS: Bupropion 150 MG SR TAB PO SCH (08:17)
[2020-11-10] MEDS: Heparin 5,000 UNITS/ML VIAL SC SCH ×3 (08:17→20:34)
[2020-11-10] MEDS: Dexamethasone 4 MG TAB PO SCH (08:17)
[2020-11-10] MEDS: Carvedilol 6.25 MG TAB PO SCH ×2 (08:18→20:34)
[2020-11-10] MEDS: hydrALAZINE 25 MG TAB PO SCH ×3 (08:18→20:35)
[2020-11-10] MEDS: Clopidogrel Bisulfate 75 MG TAB PO SCH (08:18)
[2020-11-10] MEDS: Zinc Sulfate 220 MG CAP PO SCH (08:18)
[2020-11-10] MEDS: cloNIDine 0.2 MG TAB PO SCH ×3 (08:18→20:34)
[2020-11-10] MEDS: Lidocaine Patch Removal 1 EACH TOP SCH (08:19)
[2020-11-10] MEDS: Azithromycin 250 MG TAB PO SCH (15:41)
[2020-11-10] MEDS: cefTRIAXone\\ROCEPHIN 1 GM in Sodium Chloride 0.9% 100 ML IVPB SCH (15:42)
--- NOTE | 2020-11-10 16:50 | PDOC.HOSPP ---
- Subjective Encounter Date: 11/10/20 Encounter Time: 09:30 Subjective: Patient seen for follow-up regarding COVID-19 pneumonia. She reports feeling better. - Objective Vital Signs & Weight: Vital Signs (12 hours) Temp Pulse Resp BP Pulse Ox 11/10/20 15:41 65 11/10/20 08:18 65 11/10/20 08:00 97.9 F 62 20 149/76 H 95 Weight Weight 144 lb I&O: 11/09/20 11/10/20 11/11/20 06:59 06:59 06:59 Intake Total 480 840 600 Balance 480 840 600 Result Diagrams: 11/10/20 06:07 11/10/20 06:07 Additional Labs: Labs and MAR reviewed by [facility] Hospitalist ROS - Review of Systems Respiratory: reports: cough, dry, SOB with excertion. denies: shortness of breath, hemoptysis, pleuritic pain, sputum, wheezing Cardiovascular: denies: chest pain, palpitations, orthopnea, paroxysmal noc. dyspnea, edema, light headedness - Medication Medications: Active Medications Generic Name Dose Route Start Last Admin Trade Name Freq PRN Reason Stop Dose Admin Acetaminophen 650 mg 11/06/20 13:43 11/08/20 11:10 Acetaminophen 325 Mg Tab PO 650 mg Q4H PRN Administration Headache/Fever/Mild Pain (1-3) Ascorbic Acid 1,000 mg 11/07/20 09:00 11/10/20 08:17 Ascorbic Acid 500 Mg Chewable Tablet PO 1,000 mg DAILY NOEL Administration Azithromycin 500 mg 11/08/20 15:00 11/10/20 15:41 Azithromycin 250 Mg Tab PO 11/15/20 15:01 500 mg 1500 NOEL Administration Bupropion HCl 150 mg 11/07/20 09:00 11/10/20 08:17 Bupropion 150 Mg Sr Tab PO 150 mg DAILY NOEL Administration Carvedilol 12.5 mg 11/06/20 21:00 11/10/20 08:18 Carvedilol 6.25 Mg Tab PO 12.5 mg BID NOEL Administration Clonidine 0.2 mg 11/08/20 21:00 11/10/20 15:44 Clonidine 0.2 Mg Tab PO 0.2 mg TID NOEL Administration Clonidine 0.2 mg 11/09/20 05:26 11/10/20 04:48 Clonidine 0.2 Mg Tab PO 0.2 mg QID PRN Administration SBP Greater Than 170 Clopidogrel Bisulfate 75 mg 11/07/20 09:00 11/10/20 08:18 Clopidogrel Bisulfate 75 Mg Tab PO 75 mg DAILY NOEL Administration Dexamethasone 6 mg 11/07/20 08:00 11/10/20 08:17 Dexamethasone 4 Mg Tab PO 6 mg QAM-WM NOEL Administration Guaifenesin/Dextromethorphan 15 ml 11/06/20 13:49 11/06/20 21:13 Guaifenesin Dm 100-10/5 Ml Udcup PO 15 ml Q4H PRN Administration Cough Heparin Sodium (Porcine) 5,000 units 11/06/20 15:00 11/10/20 15:42 Heparin 5,000 Units/Ml Vial SC 5,000 units TID NOEL Administration Hydralazine HCl 10 mg 11/06/20 13:48 11/07/20 05:30 Hydralazine 20 Mg/Ml Vial SLOW IVP 10 mg Q4H PRN Administration SBP GREATER THAN 160 Hydralazine HCl 100 mg 11/06/20 21:00 11/10/20 15:41 Hydralazine 25 Mg Tab PO 100 mg TID NOEL Administration Ceftriaxone Sodium 1 gm/ 100 mls @ 200 mls/hr 11/06/20 16:00 11/10/20 15:42 Sodium Chloride IVPB 100 mls Q24HR NOEL Administration Levothyroxine Sodium 50 mcg 11/10/20 06:00 11/10/20 04:32 Levothyroxine Sodium 50 Mcg Tab PO 50 mcg 0600 NOEL Administration Lidocaine 1 patch 11/06/20 21:00 11/09/20 20:37 Lidocaine 5% Patch TD 1 patch 2100 NOEL Administration Miscellaneous Medication 1 each 11/07/20 09:00 11/10/20 08:19 Lidocaine Patch Removal 1 Each TOP 1 each 0900 NOEL Administration Rosuvastatin Calcium 40 mg 11/06/20 21:00 11/09/20 20:35 Rosuvastatin 20 Mg Tab PO 40 mg HS NOLE Administration Zinc Sulfate 220 mg 11/07/20 09:00 11/10/20 08:18 Zinc Sulfate 220 Mg Cap PO 220 mg DAILY NOEL Administration - Exam General Appearance: awake alert Eye: anicteric sclera ENT: normocephalic atraumatic, no oropharyngeal lesions Neck: symmetric, no lymphadenopathy Heart: RRR Respiratory: rhonchi Gastrointestinal: soft, non-tender Skin: no rashes Psychiatric: normal affect, normal behavior Hosp A/P - Plan -Assessment/plan COVID-19 pneumonia Patient is on dexamethasone, not a candidate for remdesivir. Continue vitamin C and zinc. Acute hypoxic respiratory failure Continue oxygen as needed. Chronic kidney disease Stable Hypothyroidism Continue levothyroxine Hypertension Continue clonidine 0.2 mg 3 times a day. Diastolic heart failure Stable History of TIA Patient is on Plavix
[2020-11-10] MEDS: Lidocaine 5% Patch TD SCH (20:35)
[2020-11-10] MEDS: Rosuvastatin 20 MG TAB PO SCH (20:35)
[2020-11-11] MEDS: Levothyroxine Sodium 50 MCG TAB PO SCH (05:55)
[2020-11-11 06:38] LABS: Hemoglobin 14.7 g/dL (12.0-16.0); Mean Corpuscular Hemoglobin 32.1 pg (27.0-31.0); Mean Corpuscular Volume 97.1 fL (78.0-98.0); Mean Platelet Volume 7.3 fL (7.4-10.4); Platelet Count 279 thou/uL (130-400); RBC Distribution Width 11.7 % (11.5-14.5); Red Blood Cell (RBC) Count 4.58 mill/uL (4.20-5.40); White Blood Cell (WBC) Count 14.6 thou/uL (4.8-10.8)
[2020-11-11 06:53] LABS: Anion Gap 16 mmol/L (10-20); BUN (Urea Nitrogen) 21 mg/dL (9.8-20.1); Calc. Creatinine Clearance 43 mL/min (70-130); Calcium 8.8 mg/dL (7.8-10.44); Carbon Dioxide 25 mmol/L (23-31); Chloride 100 mmol/L (98-107); Glucose 105 mg/dL (80-115); Potassium 3.7 mmol/L (3.5-5.1); Sodium 137 mmol/L (136-145)
[2020-11-11 07:13] LABS: Band 2 % (5-11); Lymphocytes 9 % (21-51); MDiff Complete? YES; Monocytes 6 % (0-10); Neutrophil 81 % (42-75); Reactive Lymphocytes 2 % (0-10); Toxic Granulation SLIGHT
[2020-11-11] MEDS: Heparin 5,000 UNITS/ML VIAL SC SCH ×3 (08:40→21:10)
[2020-11-11] MEDS: Ascorbic Acid 500 mg Chewable Tablet PO SCH (08:40)
[2020-11-11] MEDS: cloNIDine 0.2 MG TAB PO SCH ×3 (08:40→21:10)
[2020-11-11] MEDS: hydrALAZINE 25 MG TAB PO SCH ×3 (08:40→21:10)
[2020-11-11] MEDS: Carvedilol 6.25 MG TAB PO SCH ×2 (08:40→21:10)
[2020-11-11] MEDS: Dexamethasone 4 MG TAB PO SCH (08:41)
[2020-11-11] MEDS: Clopidogrel Bisulfate 75 MG TAB PO SCH (08:41)
[2020-11-11] MEDS: Zinc Sulfate 220 MG CAP PO SCH (08:41)
[2020-11-11] MEDS: Bupropion 150 MG SR TAB PO SCH (08:41)
[2020-11-11] MEDS: Lidocaine Patch Removal 1 EACH TOP SCH (08:42)
[2020-11-11] MEDS: Azithromycin 250 MG TAB PO SCH (14:56)
[2020-11-11] MEDS: cefTRIAXone\\ROCEPHIN 1 GM in Sodium Chloride 0.9% 100 ML IVPB SCH (15:39)
--- NOTE | 2020-11-11 16:01 | PDOC.HOSPP ---
- Subjective Encounter Date: 11/11/20 Encounter Time: 14:10 Subjective: Pt seen for followup re: COVID-19 infection. Feels ok today. - Objective Vital Signs & Weight: Vital Signs (12 hours) Temp Pulse Resp BP Pulse Ox 11/11/20 14:56 63 11/11/20 08:40 63 11/11/20 08:00 98.4 F 65 18 152/75 H 92 L 11/11/20 04:00 97.9 F 63 18 159/73 H 18 L Weight Weight 144 lb I&O: 11/10/20 11/11/20 11/12/20 06:59 06:59 06:59 Intake Total 840 960 600 Balance 840 960 600 Result Diagrams: 11/11/20 06:17 11/11/20 06:17 Additional Labs: I reviewed patient's labs and MAR Hospitalist ROS - Review of Systems Respiratory: reports: SOB with excertion Cardiovascular: denies: chest pain, palpitations, orthopnea, paroxysmal noc. dyspnea, edema, light headedness Gastrointestinal: denies: nausea, vomiting, abdominal pain, diarrhea, constipation, melena, hematochezia - Medication Medications: Active Medications Generic Name Dose Route Start Last Admin Trade Name Freq PRN Reason Stop Dose Admin Acetaminophen 650 mg 11/06/20 13:43 11/08/20 11:10 Acetaminophen 325 Mg Tab PO 650 mg Q4H PRN Administration Headache/Fever/Mild Pain (1-3) Ascorbic Acid 1,000 mg 11/07/20 09:00 11/11/20 08:40 Ascorbic Acid 500 Mg Chewable Tablet PO 1,000 mg DAILY NOEL Administration Azithromycin 500 mg 11/08/20 15:00 11/11/20 14:56 Azithromycin 250 Mg Tab PO 11/15/20 15:01 500 mg 1500 NOEL Administration Bupropion HCl 150 mg 11/07/20 09:00 11/11/20 08:41 Bupropion 150 Mg Sr Tab PO 150 mg DAILY NOEL Administration Carvedilol 12.5 mg 11/06/20 21:00 11/11/20 08:40 Carvedilol 6.25 Mg Tab PO 12.5 mg BID NOEL Administration Clonidine 0.2 mg 11/08/20 21:00 11/11/20 14:56 Clonidine 0.2 Mg Tab PO 0.2 mg TID NOEL Administration Clonidine 0.2 mg 12/30/20 05:26 11/10/20 04:48 Clonidine 0.2 Mg Tab PO 0.2 mg QID PRN Administration SBP Greater Than 170 Clopidogrel Bisulfate 75 mg 11/07/20 09:00 11/11/20 08:41 Clopidogrel Bisulfate 75 Mg Tab PO 75 mg DAILY NOEL Administration Dexamethasone 6 mg 11/07/20 08:00 11/11/20 08:41 Dexamethasone 4 Mg Tab PO 6 mg QAM-WM NOEL Administration Guaifenesin/Dextromethorphan 15 ml 11/06/20 13:49 11/06/20 21:13 Guaifenesin Dm 100-10/5 Ml Udcup PO 15 ml Q4H PRN Administration Cough Heparin Sodium (Porcine) 5,000 units 11/06/20 15:00 11/11/20 14:57 Heparin 5,000 Units/Ml Vial SC 5,000 units TID NOEL Administration Hydralazine HCl 10 mg 11/06/20 13:48 11/07/20 05:30 Hydralazine 20 Mg/Ml Vial SLOW IVP 10 mg Q4H PRN Administration SBP GREATER THAN 160 Hydralazine HCl 100 mg 11/06/20 21:00 11/11/20 14:56 Hydralazine 25 Mg Tab PO 100 mg TID NOEL Administration Ceftriaxone Sodium 1 gm/ 100 mls @ 200 mls/hr 11/06/20 16:00 11/11/20 15:39 Sodium Chloride IVPB 100 mls Q24HR NOEL Administration Levothyroxine Sodium 50 mcg 11/10/20 06:00 11/11/20 05:55 Levothyroxine Sodium 50 Mcg Tab PO 50 mcg 0600 NOEL Administration Lidocaine 1 patch 11/06/20 21:00 11/10/20 20:35 Lidocaine 5% Patch TD 1 patch 2100 NOEL Administration Miscellaneous Medication 1 each 11/07/20 09:00 11/11/20 08:42 Lidocaine Patch Removal 1 Each TOP 1 each 0900 NOEL Administration Rosuvastatin Calcium 40 mg 11/06/20 21:00 11/10/20 20:35 Rosuvastatin 20 Mg Tab PO 40 mg HS NOEL Administration Zinc Sulfate 220 mg 11/07/20 09:00 11/11/20 08:41 Zinc Sulfate 220 Mg Cap PO 220 mg DAILY NOEL Administration - Exam General Appearance: awake alert Eye: anicteric sclera ENT: normocephalic atraumatic Neck: supple Heart: RRR Respiratory: rhonchi Gastrointestinal: soft Extremities: no cyanosis, no clubbing Skin: no rashes Psychiatric: normal affect, normal behavior Hosp A/P - Plan -Assessment/plan COVID-19 pneumonia Patient is on dexamethasone, not a candidate for remdesivir. Continue vitamin C and zinc. Patient continues to need supplemental oxygen, is on 4 L/min today. Acute hypoxic respiratory failure Continue oxygen as needed. Chronic kidney disease Stable Hypothyroidism Stable, patient is on levothyroxine Hypertension Continue clonidine 0.2 mg 3 times a day. Monitor vital signs and titrate antihypertensives as needed. Diastolic heart failure Stable History of TIA Stable, continue Plavix
[2020-11-11] MEDS: Lidocaine 5% Patch TD SCH (21:09)
[2020-11-11] MEDS: Rosuvastatin 20 MG TAB PO SCH (21:10)
[2020-11-12] MEDS: Levothyroxine Sodium 50 MCG TAB PO SCH (04:54)
[2020-11-12] MEDS: cloNIDine 0.2 MG TAB PO PRN (04:55)
[2020-11-12] MEDS: Ascorbic Acid 500 mg Chewable Tablet PO SCH (09:21)
[2020-11-12] MEDS: hydrALAZINE 25 MG TAB PO SCH ×3 (09:21→20:00)
[2020-11-12] MEDS: cloNIDine 0.2 MG TAB PO SCH ×3 (09:21→20:00)
[2020-11-12] MEDS: Bupropion 150 MG SR TAB PO SCH (09:22)
[2020-11-12] MEDS: Carvedilol 6.25 MG TAB PO SCH ×2 (09:22→20:27)
[2020-11-12] MEDS: Clopidogrel Bisulfate 75 MG TAB PO SCH (09:22)
[2020-11-12] MEDS: Heparin 5,000 UNITS/ML VIAL SC SCH ×3 (09:22→20:00)
[2020-11-12] MEDS: Zinc Sulfate 220 MG CAP PO SCH (09:22)
[2020-11-12] MEDS: Lidocaine Patch Removal 1 EACH TOP SCH (09:23)
[2020-11-12] MEDS: Dexamethasone 4 MG TAB PO SCH (10:34)
[2020-11-12] MEDS: Azithromycin 250 MG TAB PO SCH (14:54)
[2020-11-12] MEDS: cefTRIAXone\\ROCEPHIN 1 GM in Sodium Chloride 0.9% 100 ML IVPB SCH (14:55)
--- NOTE | 2020-11-12 17:48 | PDOC.HOSPP ---
- Subjective Encounter Date: 11/12/20 Encounter Time: 14:30 Subjective: Patient seen in follow-up regarding Covid 19 pneumonia. She denies any new complaints. - Objective Vital Signs & Weight: Vital Signs (12 hours) Temp Pulse Resp BP Pulse Ox 11/12/20 12:00 98.3 F 66 18 149/77 H 92 L 11/12/20 08:00 98.2 F 62 18 126/73 95 Weight Weight 144 lb I&O: 11/11/20 11/12/20 11/13/20 06:59 06:59 06:59 Intake Total 960 840 Balance 960 840 Result Diagrams: 11/11/20 06:17 11/11/20 06:17 Additional Labs: Labs and MAR reviewed by ar Hospitalist ROS - Review of Systems Respiratory: reports: cough, dry, SOB with excertion Cardiovascular: denies: chest pain, palpitations, orthopnea, paroxysmal noc. dyspnea, edema, light headedness Gastrointestinal: denies: nausea, vomiting, abdominal pain, diarrhea, constipation, melena, hematochezia - Medication Medications: Active Medications Generic Name Dose Route Start Last Admin Trade Name Freq PRN Reason Stop Dose Admin Acetaminophen 650 mg 11/06/20 13:43 11/08/20 11:10 Acetaminophen 325 Mg Tab PO 650 mg Q4H PRN Administration Headache/Fever/Mild Pain (1-3) Ascorbic Acid 1,000 mg 11/07/20 09:00 11/12/20 09:21 Ascorbic Acid 500 Mg Chewable Tablet PO 1,000 mg DAILY NOEL Administration Azithromycin 500 mg 11/08/20 15:00 11/12/20 14:54 Azithromycin 250 Mg Tab PO 11/15/20 15:01 500 mg 1500 NOEL Administration Bupropion HCl 150 mg 11/07/20 09:00 11/12/20 09:22 Bupropion 150 Mg Sr Tab PO 150 mg DAILY NOEL Administration Carvedilol 12.5 mg 11/06/20 21:00 11/12/20 09:22 Carvedilol 6.25 Mg Tab PO 12.5 mg BID NOEL Administration Clonidine 0.2 mg 11/08/20 21:00 11/12/20 13:30 Clonidine 0.2 Mg Tab PO 0.2 mg TID NOEL Administration Clonidine 0.2 mg 11/09/20 05:26 11/12/20 04:55 Clonidine 0.2 Mg Tab PO 0.2 mg QID PRN Administration SBP Greater Than 170 Clopidogrel Bisulfate 75 mg 11/07/20 09:00 11/12/20 09:22 Clopidogrel Bisulfate 75 Mg Tab PO 75 mg DAILY NOEL Administration Dexamethasone 6 mg 11/07/20 08:00 11/12/20 10:34 Dexamethasone 4 Mg Tab PO 6 mg QAM-WM NOEL Administration Guaifenesin/Dextromethorphan 15 ml 11/06/20 13:49 11/06/20 21:13 Guaifenesin Dm 100-10/5 Ml Udcup PO 15 ml Q4H PRN Administration Cough Heparin Sodium (Porcine) 5,000 units 11/06/20 15:00 11/12/20 14:55 Heparin 5,000 Units/Ml Vial SC 5,000 units TID NOEL Administration Hydralazine HCl 10 mg 11/06/20 13:48 11/07/20 05:30 Hydralazine 20 Mg/Ml Vial SLOW IVP 10 mg Q4H PRN Administration SBP GREATER THAN 160 Hydralazine HCl 100 mg 11/06/20 21:00 11/12/20 14:54 Hydralazine 25 Mg Tab PO 100 mg TID NOEL Administration Ceftriaxone Sodium 1 gm/ 100 mls @ 200 mls/hr 11/06/20 16:00 11/12/20 14:55 Sodium Chloride IVPB 100 mls Q24HR NOEL Administration Levothyroxine Sodium 50 mcg 11/10/20 06:00 11/12/20 04:54 Levothyroxine Sodium 50 Mcg Tab PO 50 mcg 0600 NOEL Administration Lidocaine 1 patch 11/06/20 21:00 11/11/20 21:09 Lidocaine 5% Patch TD 1 patch 2100 NOEL Administration Miscellaneous Medication 1 each 11/07/20 09:00 11/12/20 09:23 Lidocaine Patch Removal 1 Each TOP 1 each 0900 NOEL Administration Rosuvastatin Calcium 40 mg 11/06/20 21:00 11/11/20 21:10 Rosuvastatin 20 Mg Tab PO 40 mg HS NOEL Administration Zinc Sulfate 220 mg 11/07/20 09:00 11/12/20 09:22 Zinc Sulfate 220 Mg Cap PO 220 mg DAILY NOEL Administration - Exam General Appearance: awake alert Eye: anicteric sclera ENT: moist mucosa Neck: supple Heart: RRR Respiratory: normal chest expansion, rhonchi Gastrointestinal: soft, non-tender Skin: no rashes Psychiatric: normal affect, normal behavior Hosp A/P - Plan -Assessment/plan COVID-19 pneumonia Continue dexamethasone. Continue vitamin C and zinc. Patient continues to need supplemental oxygen. Acute hypoxic respiratory failure oxygen as needed. Chronic kidney disease Stable Hypothyroidism Stable Hypertension Monitor vital signs and titrate antihypertensives as needed. Diastolic heart failure Stable History of TIA Stable, continue Plavix
[2020-11-12] MEDS: Lidocaine 5% Patch TD SCH (20:00)
[2020-11-12] MEDS: Rosuvastatin 20 MG TAB PO SCH (20:00)
[2020-11-13] MEDS: Levothyroxine Sodium 50 MCG TAB PO SCH (05:02)
[2020-11-13] MEDS: cloNIDine 0.2 MG TAB PO PRN (05:02)
[2020-11-13] MEDS: Dexamethasone 4 MG TAB PO SCH (08:09)
[2020-11-13] MEDS: hydrALAZINE 25 MG TAB PO SCH ×3 (08:09→20:37)
[2020-11-13] MEDS: Ascorbic Acid 500 mg Chewable Tablet PO SCH (08:10)
[2020-11-13] MEDS: Clopidogrel Bisulfate 75 MG TAB PO SCH (08:10)
[2020-11-13] MEDS: cloNIDine 0.2 MG TAB PO SCH ×3 (08:10→20:37)
[2020-11-13] MEDS: Carvedilol 6.25 MG TAB PO SCH ×2 (08:10→20:37)
[2020-11-13] MEDS: Lidocaine Patch Removal 1 EACH TOP SCH (08:11)
[2020-11-13] MEDS: Bupropion 150 MG SR TAB PO SCH (08:11)
[2020-11-13] MEDS: Zinc Sulfate 220 MG CAP PO SCH (08:11)
[2020-11-13] MEDS: Heparin 5,000 UNITS/ML VIAL SC SCH ×3 (08:11→20:37)
--- NOTE | 2020-11-13 14:35 | PDOC.HOSPP ---
- Subjective Encounter Date: 11/13/20 Encounter Time: 11:30 Subjective: Patient seen for follow-up regarding COVID-19 pneumonia. Reports feeling better. - Objective Vital Signs & Weight: Vital Signs (12 hours) Temp Pulse Resp BP BP Pulse Ox 11/13/20 12:00 61 20 138/74 92 L 11/13/20 08:00 98.1 F 60 20 167/84 H 93 L 11/13/20 05:02 183/81 H 11/13/20 04:00 98.0 F 65 18 164/77 H 93 L Weight Weight 144 lb I&O: 11/12/20 11/13/20 11/14/20 06:59 06:59 06:59 Intake Total 840 730 Balance 840 730 Result Diagrams: 11/11/20 06:17 11/11/20 06:17 Additional Labs: I reviewed patient's labs and MAR Hospitalist ROS - Review of Systems Respiratory: reports: SOB with excertion Cardiovascular: denies: chest pain, palpitations, orthopnea, paroxysmal noc. dyspnea, edema, light headedness Gastrointestinal: denies: nausea, vomiting, abdominal pain, diarrhea, constipation, melena, hematochezia - Medication Medications: Active Medications Generic Name Dose Route Start Last Admin Trade Name Freq PRN Reason Stop Dose Admin Acetaminophen 650 mg 11/06/20 13:43 11/08/20 11:10 Acetaminophen 325 Mg Tab PO 650 mg Q4H PRN Administration Headache/Fever/Mild Pain (1-3) Ascorbic Acid 1,000 mg 11/07/20 09:00 11/13/20 08:10 Ascorbic Acid 500 Mg Chewable Tablet PO 1,000 mg DAILY NOEL Administration Azithromycin 500 mg 11/08/20 15:00 11/12/20 14:54 Azithromycin 250 Mg Tab PO 11/15/20 15:01 500 mg 1500 NOEL Administration Bupropion HCl 150 mg 11/07/20 09:00 11/13/20 08:11 Bupropion 150 Mg Sr Tab PO 150 mg DAILY NOEL Administration Carvedilol 12.5 mg 11/06/20 21:00 11/13/20 08:10 Carvedilol 6.25 Mg Tab PO 12.5 mg BID NOEL Administration Clonidine 0.2 mg 11/08/20 21:00 11/13/20 08:10 Clonidine 0.2 Mg Tab PO 0.2 mg TID NOEL Administration Clonidine 0.2 mg 11/09/20 05:26 11/13/20 05:02 Clonidine 0.2 Mg Tab PO 0.2 mg QID PRN Administration SBP Greater Than 170 Clopidogrel Bisulfate 75 mg 11/07/20 09:00 11/13/20 08:10 Clopidogrel Bisulfate 75 Mg Tab PO 75 mg DAILY NOEL Administration Dexamethasone 6 mg 11/07/20 08:00 11/13/20 08:09 Dexamethasone 4 Mg Tab PO 6 mg QAM-WM NOEL Administration Guaifenesin/Dextromethorphan 15 ml 11/06/20 13:49 11/06/20 21:13 Guaifenesin Dm 100-10/5 Ml Udcup PO 15 ml Q4H PRN Administration Cough Heparin Sodium (Porcine) 5,000 units 11/06/20 15:00 11/13/20 08:11 Heparin 5,000 Units/Ml Vial SC 5,000 units TID NOEL Administration Hydralazine HCl 10 mg 11/06/20 13:48 11/07/20 05:30 Hydralazine 20 Mg/Ml Vial SLOW IVP 10 mg Q4H PRN Administration SBP GREATER THAN 160 Hydralazine HCl 100 mg 11/06/20 21:00 11/13/20 08:09 Hydralazine 25 Mg Tab PO 100 mg TID NOEL Administration Ceftriaxone Sodium 1 gm/ 100 mls @ 200 mls/hr 11/06/20 16:00 11/12/20 14:55 Sodium Chloride IVPB 100 mls Q24HR NOEL Administration Levothyroxine Sodium 50 mcg 11/10/20 06:00 11/13/20 05:02 Levothyroxine Sodium 50 Mcg Tab PO 50 mcg 0600 NOEL Administration Lidocaine 1 patch 11/06/20 21:00 11/12/20 20:00 Lidocaine 5% Patch TD 1 patch 2100 NOEL Administration Miscellaneous Medication 1 each 11/07/20 09:00 11/13/20 08:11 Lidocaine Patch Removal 1 Each TOP 1 each 0900 NOEL Administration Pantoprazole Sodium 40 mg 11/13/20 09:00 11/13/20 08:09 Pantoprazole 40 Mg Tab PO 40 mg DAILY NOEL Administration Rosuvastatin Calcium 40 mg 11/06/20 21:00 11/12/20 20:00 Rosuvastatin 20 Mg Tab PO 40 mg HS NOEL Administration Zinc Sulfate 220 mg 11/07/20 09:00 11/13/20 08:11 Zinc Sulfate 220 Mg Cap PO 220 mg DAILY NOEL Administration - Exam General Appearance: awake alert Eye: PERRL ENT: no oropharyngeal lesions Neck: supple Heart: RRR Respiratory: rales, rhonchi Gastrointestinal: soft Skin: no rashes Psychiatric: normal affect, normal behavior Hosp A/P - Plan -Assessment/plan COVID-19 pneumonia Continue dexamethasone. Continue vitamin C and zinc. Patient continues to need supplemental oxygen, improvement has been slow. Acute hypoxic respiratory failure Continue oxygen as needed. Chronic kidney disease Stable Hypothyroidism Stable Hypertension Monitor vital signs and titrate antihypertensives as needed. Diastolic heart failure Stable History of TIA continue Plavix
[2020-11-13] MEDS: Azithromycin 250 MG TAB PO SCH (15:31)
[2020-11-13] MEDS: cefTRIAXone\\ROCEPHIN 1 GM in Sodium Chloride 0.9% 100 ML IVPB SCH (15:31)
[2020-11-13] MEDS: Rosuvastatin 20 MG TAB PO SCH (20:38)
[2020-11-13] MEDS: Lidocaine 5% Patch TD SCH (20:38)
[2020-11-14] MEDS: cloNIDine 0.2 MG TAB PO PRN (00:38)
[2020-11-14] MEDS: Levothyroxine Sodium 50 MCG TAB PO SCH (05:10)
[2020-11-14] MEDS: cloNIDine 0.2 MG TAB PO SCH ×3 (09:01→21:12)
[2020-11-14] MEDS: Bupropion 150 MG SR TAB PO SCH (09:01)
[2020-11-14] MEDS: Heparin 5,000 UNITS/ML VIAL SC SCH (09:01)
[2020-11-14] MEDS: Clopidogrel Bisulfate 75 MG TAB PO SCH (09:03)
[2020-11-14] MEDS: Carvedilol 6.25 MG TAB PO SCH ×2 (09:03→21:12)
[2020-11-14] MEDS: Dexamethasone 4 MG TAB PO SCH (09:03)
[2020-11-14] MEDS: hydrALAZINE 25 MG TAB PO SCH ×3 (09:03→21:13)
[2020-11-14] MEDS: Zinc Sulfate 220 MG CAP PO SCH (09:03)
[2020-11-14] MEDS: Ascorbic Acid 500 mg Chewable Tablet PO SCH (09:03)
[2020-11-14] MEDS: Lidocaine Patch Removal 1 EACH TOP SCH (09:04)
--- NOTE | 2020-11-14 09:19 | PDOC.HOSPP ---
- Subjective Encounter Date: 11/14/20 Encounter Time: 12:00 Subjective: Patient ambulating well. Oxygen requirement coming down a little to 4L NC. No other complaints. - Objective Vital Signs & Weight: Vital Signs (12 hours) Temp Pulse Resp BP BP Pulse Ox 11/14/20 09:16 97.5 F L 53 L 20 183/80 H 99 11/14/20 05:15 97.5 F L 61 18 150/82 H 99 11/14/20 00:38 171/81 H 11/14/20 00:30 97.8 F 61 18 171/81 H 98 Weight Weight 144 lb I&O: 11/13/20 11/14/20 11/15/20 06:59 06:59 06:59 Intake Total 730 810 Balance 730 810 Result Diagrams: 11/11/20 06:17 11/11/20 06:17 Hospitalist ROS - Review of Systems Constitutional: denies: fever, chills Respiratory: reports: cough, SOB with excertion. denies: shortness of breath Cardiovascular: denies: chest pain, palpitations Gastrointestinal: denies: nausea, vomiting, abdominal pain - Medication Medications: Active Medications Generic Name Dose Route Start Last Admin Trade Name Freq PRN Reason Stop Dose Admin Acetaminophen 650 mg 11/06/20 13:43 11/08/20 11:10 Acetaminophen 325 Mg Tab PO 650 mg Q4H PRN Administration Headache/Fever/Mild Pain (1-3) Ascorbic Acid 1,000 mg 11/07/20 09:00 11/14/20 09:03 Ascorbic Acid 500 Mg Chewable Tablet PO 1,000 mg DAILY NOEL Administration Azithromycin 500 mg 11/08/20 15:00 11/13/20 15:31 Azithromycin 250 Mg Tab PO 11/15/20 15:01 500 mg 1500 NOEL Administration Bupropion HCl 150 mg 11/07/20 09:00 11/14/20 09:01 Bupropion 150 Mg Sr Tab PO 150 mg DAILY NOEL Administration Carvedilol 12.5 mg 11/06/20 21:00 11/14/20 09:03 Carvedilol 6.25 Mg Tab PO 12.5 mg BID NOEL Administration Clonidine 0.2 mg 11/08/20 21:00 11/14/20 09:01 Clonidine 0.2 Mg Tab PO 0.2 mg TID NOEL Administration Clonidine 0.2 mg 11/09/20 05:26 11/14/20 00:38 Clonidine 0.2 Mg Tab PO 0.2 mg QID PRN Administration SBP Greater Than 170 Clopidogrel Bisulfate 75 mg 11/07/20 09:00 11/14/20 09:03 Clopidogrel Bisulfate 75 Mg Tab PO 75 mg DAILY NOEL Administration Dexamethasone 6 mg 11/07/20 08:00 11/14/20 09:03 Dexamethasone 4 Mg Tab PO 6 mg QAM-WM NOEL Administration Guaifenesin/Dextromethorphan 15 ml 11/06/20 13:49 11/06/20 21:13 Guaifenesin Dm 100-10/5 Ml Udcup PO 15 ml Q4H PRN Administration Cough Heparin Sodium (Porcine) 5,000 units 11/06/20 15:00 11/14/20 09:01 Heparin 5,000 Units/Ml Vial SC 5,000 units TID NOEL Administration Hydralazine HCl 10 mg 11/06/20 13:48 11/07/20 05:30 Hydralazine 20 Mg/Ml Vial SLOW IVP 10 mg Q4H PRN Administration SBP GREATER THAN 160 Hydralazine HCl 100 mg 11/06/20 21:00 11/14/20 09:03 Hydralazine 25 Mg Tab PO 100 mg TID NOEL Administration Ceftriaxone Sodium 1 gm/ 100 mls @ 200 mls/hr 11/06/20 16:00 11/13/20 15:31 Sodium Chloride IVPB 100 mls Q24HR NOEL Administration Levothyroxine Sodium 50 mcg 11/10/20 06:00 11/14/20 05:10 Levothyroxine Sodium 50 Mcg Tab PO 50 mcg 0600 NOEL Administration Lidocaine 1 patch 11/06/20 21:00 11/13/20 20:38 Lidocaine 5% Patch TD 1 patch 2100 NOEL Administration Miscellaneous Medication 1 each 11/07/20 09:00 11/14/20 09:04 Lidocaine Patch Removal 1 Each TOP 1 each 09 NOEL Administration Pantoprazole Sodium 40 mg 11/13/20 09:00 11/14/20 09:04 Pantoprazole 40 Mg Tab PO 40 mg DAILY NOEL Administration Rosuvastatin Calcium 40 mg 11/06/20 21:00 11/13/20 20:38 Rosuvastatin 20 Mg Tab PO 40 mg HS NOEL Administration Zinc Sulfate 220 mg 11/07/20 09:00 11/14/20 09:03 Zinc Sulfate 220 Mg Cap PO 220 mg DAILY NOEL Administration - Exam General Appearance: NAD, awake alert ENT: moist mucosa Heart: RRR, no murmur, no gallops, no rubs Respiratory: CTAB, no wheezes, no rales, no ronchi Gastrointestinal: soft, non-tender, non-distended, normal bowel sounds Extremities: no edema Psychiatric: normal affect, normal behavior, A&O x 3 Hosp A/P - Plan COVID-19 pneumonia Continue dexamethasone. Continue vitamin C and zinc. Patient continues to need supplemental oxygen, down to 4L NC this AM, improvement has been slow. Acute hypoxic respiratory failure Continue oxygen as needed. Chronic kidney disease Stable, improving some, can change heparin to Lovenox Hypothyroidism Stable Hypertension Monitor vital signs and titrate antihypertensives as needed. Diastolic heart failure Stable History of TIA continue Plavix
[2020-11-14] MEDS: cefTRIAXone\\ROCEPHIN 1 GM in Sodium Chloride 0.9% 100 ML IVPB SCH (15:06)
[2020-11-14] MEDS: Azithromycin 250 MG TAB PO SCH (15:06)
[2020-11-14] MEDS ORDERED: cefTRIAXone\\ROCEPHIN 1 GM VIAL ONE (15:11)
[2020-11-14] MEDS: Enoxaparin Sodium 40 MG/0.4 ML SYRINGE SC SCH (21:12)
[2020-11-14] MEDS: Rosuvastatin 20 MG TAB PO SCH (21:13)
[2020-11-14] MEDS: Lidocaine 5% Patch TD SCH (21:13)
[2020-11-14] MEDS: Senokot S 8.6-50 MG TAB PO PRN (21:22)
[2020-11-15] MEDS: cloNIDine 0.2 MG TAB PO PRN (05:13)
[2020-11-15] MEDS: Levothyroxine Sodium 50 MCG TAB PO SCH (05:13)
[2020-11-15] MEDS: Dexamethasone 4 MG TAB PO SCH (08:36)
[2020-11-15] MEDS: Enoxaparin Sodium 40 MG/0.4 ML SYRINGE SC SCH ×2 (08:36→22:00)
[2020-11-15] MEDS: cloNIDine 0.2 MG TAB PO SCH ×3 (08:36→22:00)
[2020-11-15] MEDS: hydrALAZINE 25 MG TAB PO SCH ×3 (08:38→22:00)
[2020-11-15] MEDS: Clopidogrel Bisulfate 75 MG TAB PO SCH (08:38)
[2020-11-15] MEDS: Carvedilol 6.25 MG TAB PO SCH ×2 (08:38→22:00)
[2020-11-15] MEDS: Bupropion 150 MG SR TAB PO SCH (08:40)
[2020-11-15] MEDS: Lidocaine Patch Removal 1 EACH TOP SCH (08:40)
[2020-11-15] MEDS: Ascorbic Acid 500 mg Chewable Tablet PO SCH (11:01)
[2020-11-15] MEDS: Zinc Sulfate 220 MG CAP PO SCH (11:01)
[2020-11-15] MEDS: Azithromycin 250 MG TAB PO SCH (14:47)
[2020-11-15] MEDS: cefTRIAXone\\ROCEPHIN 1 GM in Sodium Chloride 0.9% 100 ML IVPB SCH (15:39)
--- NOTE | 2020-11-15 19:16 | PDOC.HOSPP ---
- Subjective Encounter Date: 11/15/20 Encounter Time: 12:30 Subjective: Patient seen for follow-up regarding pneumonia. Patient reports feeling better today. - Objective Vital Signs & Weight: Vital Signs (12 hours) Temp Pulse Resp BP BP Pulse Ox 11/15/20 14:46 178/73 H 11/15/20 14:45 62 178/73 H 11/15/20 08:38 62 178/73 H 11/15/20 08:36 178/73 H 11/15/20 08:00 97.6 F 69 20 158/83 H 90 L Weight Weight 144 lb I&O: 11/14/20 11/15/20 11/16/20 06:59 06:59 06:59 Intake Total 810 1310 960 Balance 810 1310 960 Result Diagrams: 11/11/20 06:17 11/11/20 06:17 Additional Labs: Labs and MAR reviewed by de Hospitalist ROS - Review of Systems Constitutional: denies: fever, chills, sweats, weakness, malaise Respiratory: reports: cough, dry, SOB with excertion. denies: shortness of breath, hemoptysis, pleuritic pain, sputum, wheezing - Medication Medications: Active Medications Generic Name Dose Route Start Last Admin Trade Name Freq PRN Reason Stop Dose Admin Acetaminophen 650 mg 11/06/20 13:43 11/08/20 11:10 Acetaminophen 325 Mg Tab PO 650 mg Q4H PRN Administration Headache/Fever/Mild Pain (1-3) Ascorbic Acid 1,000 mg 11/07/20 09:00 11/15/20 11:01 Ascorbic Acid 500 Mg Chewable Tablet PO 1,000 mg DAILY NOEL Administration Bupropion HCl 150 mg 11/07/20 09:00 11/15/20 08:40 Bupropion 150 Mg Sr Tab PO 150 mg DAILY NOEL Administration Carvedilol 12.5 mg 11/06/20 21:00 11/15/20 08:38 Carvedilol 6.25 Mg Tab PO 12.5 mg BID NOEL Administration Clonidine 0.2 mg 11/08/20 21:00 11/15/20 14:46 Clonidine 0.2 Mg Tab PO 0.2 mg TID NOEL Administration Clonidine 0.2 mg 11/09/20 05:26 11/15/20 05:13 Clonidine 0.2 Mg Tab PO 0.2 mg QID PRN Administration SBP Greater Than 170 Clopidogrel Bisulfate 75 mg 11/07/20 09:00 11/15/20 08:38 Clopidogrel Bisulfate 75 Mg Tab PO 75 mg DAILY NOEL Administration Dexamethasone 6 mg 11/07/20 08:00 11/15/20 08:36 Dexamethasone 4 Mg Tab PO 6 mg QAM-WM NOEL Administration Enoxaparin Sodium 40 mg 11/14/20 21:00 11/15/20 08:36 Enoxaparin Sodium 40 Mg/0.4 Ml Syringe SC 40 mg 0900,2100 NOEL Administration Guaifenesin/Dextromethorphan 15 ml 11/06/20 13:49 11/06/20 21:13 Guaifenesin Dm 100-10/5 Ml Udcup PO 15 ml Q4H PRN Administration Cough Hydralazine HCl 10 mg 11/06/20 13:48 11/07/20 05:30 Hydralazine 20 Mg/Ml Vial SLOW IVP 10 mg Q4H PRN Administration SBP GREATER THAN 160 Hydralazine HCl 100 mg 11/06/20 21:00 11/15/20 14:45 Hydralazine 25 Mg Tab PO 100 mg TID NOEL Administration Ceftriaxone Sodium 1 gm/ 100 mls @ 200 mls/hr 11/06/20 16:00 11/15/20 15:39 Sodium Chloride IVPB 100 mls Q24HR NOEL Administration Levothyroxine Sodium 50 mcg 11/10/20 06:00 11/15/20 05:13 Levothyroxine Sodium 50 Mcg Tab PO 50 mcg 0600 NOEL Administration Lidocaine 1 patch 11/06/20 21:00 11/14/20 21:13 Lidocaine 5% Patch TD 1 patch 2100 NOEL Administration Miscellaneous Medication 1 each 11/07/20 09:00 11/15/20 08:40 Lidocaine Patch Removal 1 Each TOP 1 each 0900 NOEL Administration Pantoprazole Sodium 40 mg 11/13/20 09:00 11/15/20 08:38 Pantoprazole 40 Mg Tab PO 40 mg DAILY NOEL Administration Rosuvastatin Calcium 40 mg 11/06/20 21:00 11/14/20 21:13 Rosuvastatin 20 Mg Tab PO 40 mg HS NOEL Administration Senna/Docusate Sodium 2 tab 11/14/20 18:51 11/14/20 21:22 Senokot S 8.6-50 Mg Tab PO 2 tab BIDPRN PRN Administration CONSTIPATION Zinc Sulfate 220 mg 11/07/20 09:00 11/15/20 11:01 Zinc Sulfate 220 Mg Cap PO 220 mg DAILY NOEL Administration - Exam General Appearance: awake alert ENT: normocephalic atraumatic, no oropharyngeal lesions Neck: supple Heart: RRR Respiratory: no wheezes, rhonchi Gastrointestinal: soft Skin: no rashes Psychiatric: normal affect Hosp A/P - Plan -Assessment/plan COVID-19 pneumonia Continue dexamethasone. Continue vitamin C and zinc. Patient's oxygen requirements have been decreasing. Acute hypoxic respiratory failure Continue oxygen for hypoxia. Chronic kidney disease Stable Hypothyroidism Stable Hypertension Stable. Diastolic heart failure Stable History of TIA continue Plavix
[2020-11-15] MEDS: Lidocaine 5% Patch TD SCH (22:00)
[2020-11-15] MEDS: Rosuvastatin 20 MG TAB PO SCH (22:00)
[2020-11-16] MEDS: Levothyroxine Sodium 50 MCG TAB PO SCH (06:11)
[2020-11-16] MEDS: hydrALAZINE 25 MG TAB PO SCH ×3 (08:18→20:44)
[2020-11-16] MEDS: Enoxaparin Sodium 40 MG/0.4 ML SYRINGE SC SCH ×2 (08:18→20:44)
[2020-11-16] MEDS: cloNIDine 0.2 MG TAB PO SCH ×3 (08:19→20:43)
[2020-11-16] MEDS: Clopidogrel Bisulfate 75 MG TAB PO SCH (08:19)
[2020-11-16] MEDS: Ascorbic Acid 500 mg Chewable Tablet PO SCH (08:19)
[2020-11-16] MEDS: Carvedilol 6.25 MG TAB PO SCH ×2 (08:19→20:43)
[2020-11-16] MEDS: Dexamethasone 4 MG TAB PO SCH (08:19)
[2020-11-16] MEDS: Lidocaine Patch Removal 1 EACH TOP SCH (08:19)
[2020-11-16] MEDS: Bupropion 150 MG SR TAB PO SCH (15:08)
[2020-11-16] MEDS: Zinc Sulfate 220 MG CAP PO SCH (15:09)
[2020-11-16] MEDS: cefTRIAXone\\ROCEPHIN 1 GM in Sodium Chloride 0.9% 100 ML IVPB SCH (16:09)
--- NOTE | 2020-11-16 19:55 | PDOC.HOSPP ---
- Subjective Encounter Date: 11/16/20 Encounter Time: 12:00 Subjective: Patient seen for follow-up regarding hypoxic respiratory failure. She reports feeling better than yesterday. - Objective Vital Signs & Weight: Vital Signs (12 hours) Temp Pulse Resp BP Pulse Ox 11/16/20 15:20 56 L 180/78 H 11/16/20 08:57 97.6 F 56 L 18 97 11/16/20 08:19 180/78 H 11/16/20 08:18 56 L 11/16/20 08:00 97 Weight Weight 144 lb I&O: 11/15/20 11/16/20 11/17/20 06:59 06:59 06:59 Intake Total 1310 960 960 Balance 1310 960 960 Result Diagrams: 11/11/20 06:17 11/11/20 06:17 Additional Labs: I reviewed patient's labs and MAR Hospitalist ROS - Review of Systems Respiratory: reports: SOB with excertion. denies: cough, dry, shortness of breath, hemoptysis, pleuritic pain, sputum, wheezing Gastrointestinal: denies: nausea, vomiting, abdominal pain, diarrhea, constipation, melena, hematochezia Genitourinary: denies: dysuria, frequency, incontinence, hematuria, retention - Medication Medications: Active Medications Generic Name Dose Route Start Last Admin Trade Name Delfinoq PRN Reason Stop Dose Admin Acetaminophen 650 mg 11/06/20 13:43 11/08/20 11:10 Acetaminophen 325 Mg Tab PO 650 mg Q4H PRN Administration Headache/Fever/Mild Pain (1-3) Ascorbic Acid 1,000 mg 11/07/20 09:00 11/16/20 08:19 Ascorbic Acid 500 Mg Chewable Tablet PO 1,000 mg DAILY NOEL Administration Bupropion HCl 150 mg 11/07/20 09:00 11/16/20 15:08 Bupropion 150 Mg Sr Tab PO Not Given DAILY NOEL Carvedilol 12.5 mg 11/06/20 21:00 11/16/20 08:19 Carvedilol 6.25 Mg Tab PO 12.5 mg BID NOEL Administration Clonidine 0.2 mg 11/08/20 21:00 11/16/20 15:20 Clonidine 0.2 Mg Tab PO 0.2 mg TID NOEL Administration Clonidine 0.2 mg 11/09/20 05:26 11/15/20 05:13 Clonidine 0.2 Mg Tab PO 0.2 mg QID PRN Administration SBP Greater Than 170 Clopidogrel Bisulfate 75 mg 11/07/20 09:00 11/16/20 08:19 Clopidogrel Bisulfate 75 Mg Tab PO 75 mg DAILY NOEL Administration Dexamethasone 6 mg 11/07/20 08:00 11/16/20 08:19 Dexamethasone 4 Mg Tab PO 6 mg QAM-WM NOEL Administration Enoxaparin Sodium 40 mg 11/14/20 21:00 11/16/20 08:18 Enoxaparin Sodium 40 Mg/0.4 Ml Syringe SC 40 mg 09,2100 NOEL Administration Guaifenesin/Dextromethorphan 15 ml 11/06/20 13:49 11/06/20 21:13 Guaifenesin Dm 100-10/5 Ml Udcup PO 15 ml Q4H PRN Administration Cough Hydralazine HCl 10 mg 11/06/20 13:48 11/07/20 05:30 Hydralazine 20 Mg/Ml Vial SLOW IVP 10 mg Q4H PRN Administration SBP GREATER THAN 160 Hydralazine HCl 100 mg 11/06/20 21:00 11/16/20 15:20 Hydralazine 25 Mg Tab PO 100 mg TID NOEL Administration Ceftriaxone Sodium 1 gm/ 100 mls @ 200 mls/hr 11/06/20 16:00 11/16/20 16:09 Sodium Chloride IVPB 100 mls Q24HR NOEL Administration Levothyroxine Sodium 50 mcg 11/10/20 06:00 11/16/20 06:11 Levothyroxine Sodium 50 Mcg Tab PO 50 mcg 0600 NOEL Administration Lidocaine 1 patch 11/06/20 21:00 11/15/20 22:00 Lidocaine 5% Patch TD 1 patch 2100 NOEL Administration Miscellaneous Medication 1 each 11/07/20 09:00 11/16/20 08:19 Lidocaine Patch Removal 1 Each TOP 1 each 0900 NOEL Administration Pantoprazole Sodium 40 mg 11/13/20 09:00 11/16/20 08:19 Pantoprazole 40 Mg Tab PO 40 mg DAILY NOEL Administration Rosuvastatin Calcium 40 mg 11/06/20 21:00 11/15/20 22:00 Rosuvastatin 20 Mg Tab PO 40 mg HS NOEL Administration Senna/Docusate Sodium 2 tab 11/14/20 18:51 11/14/20 21:22 Senokot S 8.6-50 Mg Tab PO 2 tab BIDPRN PRN Administration CONSTIPATION Zinc Sulfate 220 mg 11/07/20 09:00 11/16/20 15:09 Zinc Sulfate 220 Mg Cap PO Not Given DAILY NOEL - Exam General Appearance: awake alert Eye: anicteric sclera ENT: normocephalic atraumatic Neck: supple Heart: RRR Respiratory: CTAB, no wheezes Gastrointestinal: soft, non-tender Extremities: no edema Skin: no rashes Musculoskeletal: no muscle wasting Psychiatric: normal affect, normal behavior Hosp A/P - Plan -Assessment/plan COVID-19 pneumonia Continue dexamethasone, vitamin C and zinc. Try to decrease patient's supplemental oxygen requirements. Acute hypoxic respiratory failure Improving with supplemental oxygen. Chronic kidney disease Stable Hypothyroidism Stable Hypertension Stable. Diastolic heart failure Stable History of TIA Patient is on Plavix
[2020-11-16] MEDS: Lidocaine 5% Patch TD SCH (20:45)
[2020-11-16] MEDS: Rosuvastatin 20 MG TAB PO SCH (20:45)
[2020-11-16] MEDS: Senokot S 8.6-50 MG TAB PO PRN (23:00)
[2020-11-17] MEDS: cloNIDine 0.2 MG TAB PO PRN (00:20)
[2020-11-17] MEDS ORDERED: Aluminum & Magnesium Hydroxide 60 ML, Lidocaine 2% Viscous Solution 30 ML, diphenhydrAM... SSW PRN (05:07)
[2020-11-17] MEDS: Levothyroxine Sodium 50 MCG TAB PO SCH (06:08)
[2020-11-17] MEDS: Dexamethasone 4 MG TAB PO SCH (08:30)
[2020-11-17] MEDS: hydrALAZINE 25 MG TAB PO SCH ×3 (08:30→20:48)
[2020-11-17] MEDS: cloNIDine 0.2 MG TAB PO SCH ×3 (08:30→20:48)
[2020-11-17] MEDS: Bupropion 150 MG SR TAB PO SCH (08:31)
[2020-11-17] MEDS: Lidocaine Patch Removal 1 EACH TOP SCH (08:31)
[2020-11-17] MEDS: Ascorbic Acid 500 mg Chewable Tablet PO SCH (08:31)
[2020-11-17] MEDS: Clopidogrel Bisulfate 75 MG TAB PO SCH (08:31)
[2020-11-17] MEDS: Carvedilol 6.25 MG TAB PO SCH ×2 (08:31→20:48)
[2020-11-17] MEDS: Zinc Sulfate 220 MG CAP PO SCH (08:31)
[2020-11-17] MEDS: Enoxaparin Sodium 40 MG/0.4 ML SYRINGE SC SCH ×2 (08:39→20:59)
--- NOTE | 2020-11-17 16:03 | PDOC.DS.DS ---
Provider - Provider Date of Admission: 11/06/20 13:06 Date of Discharge: 11/17/20 Admitting Provider: Ivet Tomlin MD Primary Care Physician: Arielle Vila DO Course - Hospital Course Hospital Course: Discharge diagnosis: 1. Acute hypoxic respiratory failure 2. COVID-19 pneumonia 3. Hypertensive urgency 4. Chronic kidney disease stage III Hospital course: Patient is a pleasant 65-year-old lady who was admitted to the hospital on November 06, 2020 for acute hypoxic respiratory failure secondary to COVID-19 pneumonia. She was treated with remdesivir, dexamethasone, oxygen, vitamin C and zinc. Her oxygen requirements initially worsened but subsequently improved. She does require home oxygen, which is being arranged prior to discharge. Many thanks for allowing me to participate in your patient's care. Please feel free to contact me with any questions or concerns. Discharge destination: Home Total amount of time spent coordinating this discharge: 31 minutes Resuscitation Status: 11/06/20 13:43 Resuscitation Status Routine Co-Sign Provider: Resuscitation Status: FULL: Full Resuscitation - Labs Lab Results: 11/11/20 06:17 11/11/20 06:17 Microbiology - Entire Visit 11/06/20 09:37 Venous blood - Left Hand Blood Culture - Final NO GROWTH IN 5 DAYS 11/06/20 09:37 Venous blood - Left Arm Blood Culture - Final NO GROWTH IN 5 DAYS - Physical Exam Vitals: Vital Signs (12 hours) Temp Pulse Resp BP BP Pulse Ox 11/17/20 15:03 177/89 H 11/17/20 08:31 177/89 H 11/17/20 08:30 56 L 177/89 H 11/17/20 08:00 98.3 F 62 20 162/71 H 95 Weight Admit Weight 144 lb Weight 144 lb Physical Exam: The patient was seen and examined on the day of discharge. Patient denies chest pain or shortness of breath. Vital signs are stable. S1 and S2 are heard. Lungs are clear to auscultation bilaterally. Plan - Discharge Medications Prescriptions: Dexamethasone 6 mg PO DAILY #3 tablet Pantoprazole [Protonix] 40 mg PO DAILY #3 tab Ascorbic Acid [Vitamin C] 1,000 mg PO DAILY #14 tab Zinc Sulfate 220 mg PO DAILY #7 cap Home Medications: Medication Instructions Recorded Confirmed Type ALButerol Sulfate [Ventolin Neb] 3 ml NEB Q6HR PRN 11/06/20 11/06/20 History BuPROPion SR [Wellbutrin SR] 1 tablet PO DAILY 11/06/20 11/06/20 History Carvedilol [Coreg] 12.5 mg PO BID 11/06/20 11/06/20 History Clopidogrel Bisulfate [Plavix] 75 mg PO DAILY 11/06/20 11/06/20 History Furosemide [Lasix] 10 mg PO Q2D 11/06/20 11/06/20 History Levothyroxine Sodium [Synthroid] 75 mcg PO DAILY 11/06/20 11/06/20 History Liothyronine Sodium [Cytomel] 5 mcg PO Q2D 11/06/20 11/06/20 History Oxymetazoline HCl [Afrin Nasal 2 - 3 spray EA NARE BID PRN 11/06/20 11/06/20 History Stanton] Potassium Chloride [K-Tab ER] 20 meq PO DAILY 11/06/20 11/06/20 History Rosuvastatin Calcium [Crestor] 40 mg PO DAILY 11/06/20 11/06/20 History hydrALAZINE HCl [Hydralazine HCl] 100 mg PO TID 11/06/20 11/06/20 History Ascorbic Acid [Vitamin C] 1,000 mg PO DAILY #14 tab 11/17/20 Rx Dexamethasone 6 mg PO DAILY #3 tablet 11/17/20 Rx Pantoprazole [Protonix] 40 mg PO DAILY #3 tab 11/17/20 Rx Zinc Sulfate 220 mg PO DAILY #7 cap 11/17/20 Rx Allergies: lisinopril Allergy (Intermediate, Verified 11/06/20 14:08) angioedema - Discharge Instructions Discharge Instructions:: Check your blood pressure and heart rate 3 times a day and shows readings to your primary care provider. - Follow up Plan Referrals: [facility] [Outside] Arielle Vila DO [Primary Care Provider] - 3 Days Disposition: HOME Quality - Care Measures CORE MEASURES:: N/A
[2020-11-17 20:41] VITALS: TEMP 98.6
[2020-11-17] MEDS: Rosuvastatin 20 MG TAB PO SCH (20:49)
[2020-11-17] MEDS: Lidocaine 5% Patch TD SCH (20:51)
[2020-11-17 21:40] VITALS: BP 174/81
== END 2020-11-17 21:21 | disposition home or self-care (01) | DRG 177 ==
LOC: ERS 08:48 → T4-A 13:06
PROVIDERS: ADMIT Family Medicine; ATTEND Internal Medicine
PROC: 8E0ZXY6 Isolation (ICD-10-PCS; principal; 2020-11-06)
PROC: XW13325 Transfusion of Convalescent Plasma (Nonautologous) into Peripheral Vein, Percutaneous Approach, New Technology Group 5 (ICD-10-PCS; 2020-11-06)
PROC: XW033E5 Introduction of Remdesivir Anti-infective into Peripheral Vein, Percutaneous Approach, New Technology Group 5 (ICD-10-PCS; 2020-11-06)
DX: U07.1 COVID-19 (principal); J12.82 Pneumonia due to coronavirus disease 2019; J96.01 Acute respiratory failure with hypoxia; I50.32 Chronic diastolic (congestive) heart failure; I13.0 Hypertensive heart and chronic kidney disease with heart failure and stage 1 through stage 4 chronic kidney disease, or unspecified chronic kidney disease; N18.4 Chronic kidney disease, stage 4 (severe); E03.9 Hypothyroidism, unspecified; I16.0 Hypertensive urgency; E78.5 Hyperlipidemia, unspecified; Z88.8 Allergy status to other drugs, medicaments and biological substances; Z79.51 Long term (current) use of inhaled steroids; Z79.899 Other long term (current) drug therapy; Z79.82 Long term (current) use of aspirin; Z86.73 Personal history of transient ischemic attack (TIA), and cerebral infarction without residual deficits; Z90.710 Acquired absence of both cervix and uterus; Z87.891 Personal history of nicotine dependence; Z79.890 Hormone replacement therapy; Z98.890 Other specified postprocedural states
CPT/HCPCS: 36415; 36430; 70450; 71045; 80048; 80053; 81003; 81015; 82728; 83605; 83615; 83880; 84443; 84484; 85025; 85379; 85652; 86140; 86850; 86900; 86901; 87040; 93005; 96365; 96375; 99284; J0360; J0456; J0696; J1100; J1644; J1650; J3490; J7050; J8540; P9017; Q0163

== ENCOUNTER 2020-12-14 08:45 | Outpatient (CLI) | payer MEDICARE, OTHER ==
--- NOTE | 2020-12-14 09:11 | RAD ---
EXAM: CHEST TWO VIEWS 12/14/2020 9:09 AM HISTORY: Dyspnea COMPARISON: None. FINDINGS: Lungs: There is worsening bilateral peripheral groundglass airspace opacities suspicious for worseni ng pneumonia Heart: There is stable mild cardiomegaly. Pulmonary Vessels: Normal. Costophrenic Angles: Clear. Pneumothorax: None. Osseous Structures: Intact. Additional Findings: None. IMPRESSION: Worsening bilateral pneumonia.
== END 2020-12-14 08:46 | disposition home or self-care (01) ==
LOC: BICRAD 08:45
PROVIDERS: ATTEND Internal Medicine Pulmonary Disease
DX: R06.00 Dyspnea, unspecified (principal); J18.9 Pneumonia, unspecified organism
CPT/HCPCS: 71046

== ENCOUNTER 2021-12-16 14:28 | Inpatient (IN) | payer MEDICARE ==
[2021-12-16] MEDS ORDERED: Nitroglycerin 2% Ointment 1 INCH/1 GM Packet ONE (15:13)
[2021-12-16] MEDS ORDERED: Enoxaparin Sodium 60 MG/0.6 ML SYRINGE ONE (15:13)
[2021-12-16] MEDS ORDERED: Nitroglycerin 0.4 MG TAB (25 Tab Bottle) SL PRN (16:12)
[2021-12-16] MEDS ORDERED: Ondansetron ODT 4 MG TAB PO PRN (16:16)
[2021-12-16] MEDS ORDERED: Calcium Carbonate 500 MG ChewTAB PO PRN (16:16)
[2021-12-16] MEDS ORDERED: Senokot S 8.6-50 MG TAB PO PRN (16:16)
[2021-12-16 16:42] LABS: #Monocytes 0.6 thou/uL (0.11-0.59); #Neutrophils 15.2 thou/uL (1.40-6.50); %Basophils 0.2 % (0.0-1.0); %Eosinophils 0.2 % (0.0-10.0); %Lymphocytes 11.1 % (21.0-51.0); %Monocytes 3.3 % (0.0-10.0); %Neutrophils 85.2 % (42.0-75.0); Hemoglobin 18.4 g/dL (12.0-16.0); Mean Corpuscular HGB CONC 33.1 g/dL (32.0-36.0); Mean Corpuscular Hemoglobin 31.6 pg (27.0-31.0); Mean Corpuscular Volume 95.4 fL (78.0-98.0); Mean Platelet Volume 7.6 fL (7.4-10.4); Platelet Count 276 thou/uL (130-400); Red Blood Cell (RBC) Count 5.83 mill/uL (4.20-5.40); White Blood Cell (WBC) Count 17.8 thou/uL (4.8-10.8)
[2021-12-16 16:55] LABS: ALT (SGPT) 25 U/L (8-55); AST (SGOT) 31 U/L (5-34); Albumin 4.8 g/dL (3.4-4.8); Alkaline Phosphatase 108 U/L (40-110); Anion Gap 23 mmol/L (10-20); BUN (Urea Nitrogen) 28 mg/dL (9.8-20.1); Bilirubin, Total 0.7 mg/dL (0.2-1.2); Calc. Creatinine Clearance 0 mL/min (70-130); Calcium 10.3 mg/dL (7.8-10.44); Carbon Dioxide 18 mmol/L (23-31); Chloride 98 mmol/L (98-107); Globulin 3.3 g/dL (2.4-3.5); Glucose 115 mg/dL (80-115); Magnesium 2.2 mg/dL (1.6-2.6); Potassium 3.7 mmol/L (3.5-5.1); Protein, Total 8.1 g/dL (5.8-8.1); Sodium 135 mmol/L (136-145)
[2021-12-16] MEDS ORDERED: Sodium Chloride 0.9% 500 ML IV SCH (17:15)
[2021-12-16 17:53] VITALS: BMI 27.6
[2021-12-16 18:27] LABS: Troponin I 0.045 ng/mL (< 0.028)
[2021-12-16] MEDS: Carvedilol 25 MG TAB PO SCH (20:39)
[2021-12-16] MEDS: NIFEdipine XL 60 MG TAB PO SCH (20:39)
[2021-12-16] MEDS: Acetaminophen 325 MG TAB PO PRN (20:39)
[2021-12-16] MEDS ORDERED: Carvedilol 25 MG TAB PO SCH (21:00)
[2021-12-16] MEDS ORDERED: NIFEdipine XL 30 MG TAB PO SCH (21:00)
[2021-12-16 21:01] LABS: Bilirubin Negative (Negative); Blood, Urine 2+ (Negative); Clarity Clear (Clear); Glucose, Urine (Dipstick) Normal (Negative); Ketone, Urine Negative (Negative); Leukocyte Negative Leu/uL (Negative); Mucous/LPF Rare LPF (<2+); Nitrite Negative (Negative); Protein, Urine (Dipstick) 300 mg/dL (Neg-Trace); Specific Gravity, Urine 1.016 (1.002-1.036); Squamous Epithelial 0-3 HPF (0-3); Urobilinogen Normal mg/dL (Less than 2); WBC/HPF 0-3 HPF (0-3)
[2021-12-16 21:10] LABS: Bacteria/HPF Rare-Few HPF (None Seen)
[2021-12-16] MEDS: Nitroglycerin 2% Ointment 1 INCH/1 GM Packet TOP SCH (23:53)
[2021-12-17 04:31] LABS: #Eosinphils 0.1 thou/uL (0.0-0.7); #Lymphocytes 2.5 thou/uL (1.20-3.40); %Basophils 0.4 % (0.0-1.0); %Eosinophils 0.4 % (0.0-10.0); %Lymphocytes 19.9 % (21.0-51.0); %Neutrophils 71.4 % (42.0-75.0); Hemoglobin 17.9 g/dL (12.0-16.0); Mean Corpuscular HGB CONC 33.8 g/dL (32.0-36.0); Mean Corpuscular Hemoglobin 31.9 pg (27.0-31.0); Mean Corpuscular Volume 94.4 fL (78.0-98.0); Mean Platelet Volume 7.5 fL (7.4-10.4); Platelet Count 225 thou/uL (130-400); RBC Distribution Width 11.7 % (11.5-14.5); Red Blood Cell (RBC) Count 5.59 mill/uL (4.20-5.40); White Blood Cell (WBC) Count 12.6 thou/uL (4.8-10.8)
[2021-12-17 04:53] LABS: Anion Gap 14 mmol/L (10-20); BUN (Urea Nitrogen) 30 mg/dL (9.8-20.1); Calc. Creatinine Clearance 23 mL/min (70-130); Calcium 10.1 mg/dL (7.8-10.44); Carbon Dioxide 28 mmol/L (23-31); Cardiac Risk 3.1 (Less than 4.5); Chloride 97 mmol/L (98-107); Cholesterol 181 mg/dl (< 200 Desired); Glucose 109 mg/dL (80-115); HDL Cholesterol 59 mg/dL (>60 Neg Risk); LDL Cholesterol, Calculated 85 mg/dL; Potassium 3.3 mmol/L (3.5-5.1); Sodium 136 mmol/L (136-145); Triglycerides 185 mg/dL (Less than 150)
[2021-12-17] MEDS: Ondansetron PF 4 MG/2 ML Vial IVP PRN ×2 (05:17→15:18)
[2021-12-17] MEDS: Levothyroxine Sodium 88 MCG TAB PO SCH (05:18)
[2021-12-17] MEDS: Acetaminophen 325 MG TAB PO PRN ×3 (05:19→21:33)
[2021-12-17] MEDS: Nitroglycerin 2% Ointment 1 INCH/1 GM Packet TOP SCH ×2 (06:45→15:14)
[2021-12-17] MEDS: NIFEdipine XL 60 MG TAB PO SCH ×2 (08:37→21:33)
[2021-12-17 08:38] LABS: Creatinine, Urine 64.02 mg/dL (47-110)
[2021-12-17] MEDS: Clopidogrel Bisulfate 75 MG TAB PO SCH (08:38)
[2021-12-17] MEDS: Rosuvastatin 20 MG TAB PO SCH (08:38)
[2021-12-17] MEDS: Heparin 5,000 UNITS/ML VIAL SC SCH ×3 (08:38→21:33)
[2021-12-17] MEDS: Carvedilol 25 MG TAB PO SCH ×2 (08:38→21:33)
[2021-12-17] MEDS ORDERED: Aspirin Chewable 81 MG TAB PO SCH (09:00)
[2021-12-17 15:29] LABS: SARS-CoV-2 PCR by NAA Not Detected (NotDetected)
[2021-12-17] MEDS ORDERED: Promethazine HCl 25 MG in Sodium Chloride 0.9% 50 ML IVPB SCH (16:00)
[2021-12-17] MEDS ORDERED: Pantoprazole 40 MG VIAL IVP SCH (18:15)
[2021-12-17] MEDS: Promethazine HCl 25 MG in Sodium Chloride 0.9% 50 ML IVPB PRN (21:32)
[2021-12-18] MEDS: Ondansetron PF 4 MG/2 ML Vial IVP PRN (02:57)
[2021-12-18 05:30] LABS: #Lymphocytes 1.7 thou/uL (1.20-3.40); #Monocytes 0.3 thou/uL (0.11-0.59); #Neutrophils 11.5 thou/uL (1.40-6.50); %Basophils 0.1 % (0.0-1.0); %Eosinophils 0.1 % (0.0-10.0); %Lymphocytes 12.6 % (21.0-51.0); %Monocytes 1.9 % (0.0-10.0); %Neutrophils 85.3 % (42.0-75.0); Hemoglobin 18.6 g/dL (12.0-16.0); Mean Corpuscular HGB CONC 34.1 g/dL (32.0-36.0); Mean Corpuscular Hemoglobin 32.1 pg (27.0-31.0); Mean Corpuscular Volume 94.1 fL (78.0-98.0); Mean Platelet Volume 7.8 fL (7.4-10.4); Platelet Count 209 thou/uL (130-400); RBC Distribution Width 11.8 % (11.5-14.5); White Blood Cell (WBC) Count 13.5 thou/uL (4.8-10.8)
[2021-12-18] MEDS: Levothyroxine Sodium 88 MCG TAB PO SCH ×2 (05:41→05:50)
[2021-12-18] MEDS: Promethazine HCl 25 MG in Sodium Chloride 0.9% 50 ML IVPB PRN (05:42)
[2021-12-18 05:52] LABS: Anion Gap 18 mmol/L (10-20); BUN (Urea Nitrogen) 30 mg/dL (9.8-20.1); Calc. Creatinine Clearance 24 mL/min (70-130); Calcium 10.2 mg/dL (7.8-10.44); Carbon Dioxide 24 mmol/L (23-31); Chloride 98 mmol/L (98-107); Glucose 133 mg/dL (80-115); Potassium 3.2 mmol/L (3.5-5.1); Sodium 137 mmol/L (136-145)
[2021-12-18] MEDS ORDERED: Potassium Bicarbonate/Cit Ac 20 MEQ TAB PO SCH (06:45)
[2021-12-18] MEDS: Potassium Chloride 20 MEQ in Premix Bag 1 BAG IVPB SCH ×2 (07:11→11:19)
[2021-12-18] MEDS ORDERED: Metoclopramide HCl 10 MG/2 ML VIAL IVP PRN (08:42)
[2021-12-18] MEDS ORDERED: Metoclopramide HCl 10 MG/2 ML VIAL IVP SCH (08:45)
[2021-12-18] MEDS: Heparin 5,000 UNITS/ML VIAL SC SCH ×3 (08:58→20:36)
[2021-12-18] MEDS ORDERED: Scopolamine 1.5 mg/72 hour Patch TD SCH (09:00)
[2021-12-18] MEDS: NIFEdipine XL 60 MG TAB PO SCH ×2 (09:51→20:36)
[2021-12-18] MEDS: Clopidogrel Bisulfate 75 MG TAB PO SCH (09:51)
[2021-12-18] MEDS: Rosuvastatin 20 MG TAB PO SCH (09:51)
[2021-12-18] MEDS: Labetalol HCl 100 MG TAB PO SCH ×2 (09:51→20:35)
[2021-12-18 10:50] LABS: Magnesium 2.2 mg/dL (1.6-2.6); Phosphorus 3.4 mg/dL (2.3-4.7)
[2021-12-18] MEDS: hydrALAZINE 20 MG/ML VIAL SLOW IVP PRN ×2 (11:18→16:50)
[2021-12-18] MEDS: Sodium Chloride 0.9% 1,000 ML IV SCH (11:19)
[2021-12-18] MEDS ORDERED: hydrALAZINE 20 MG/ML VIAL SLOW IVP SCH (13:00)
[2021-12-18] MEDS ORDERED: Metoprolol Tartrate 5 MG/5 ML VIAL ONE (13:59)
[2021-12-18] MEDS ORDERED: Metoprolol Tartrate 5 MG/5 ML VIAL IVP PRN (14:10)
[2021-12-18] MEDS ORDERED: Metoprolol Tartrate 5 MG/5 ML VIAL IVP SCH (14:15)
[2021-12-18] MEDS ORDERED: niCARdipine 40MG In NaCl 40 MG/200 ML BAG IVPB SCH (16:47)
[2021-12-18] MEDS ORDERED: niCARdipine 25 MG in Sodium Chloride 0.9% 250 ML 250 ML IVPB SCH (17:00)
[2021-12-18] MEDS ORDERED: Diltiazem HCl 125 MG, Admixture Fee 1 EACH in Sodium Chloride 0.9% 100 ML IVPB SCH (17:15)
[2021-12-18] MEDS ORDERED: hydrALAZINE 20 MG/ML VIAL SLOW IVP PRN (17:46)
[2021-12-19] MEDS: Labetalol HCl 100 MG/20 ML VIAL SLOW IVP PRN ×3 (02:17→06:15)
[2021-12-19 05:45] LABS: ALT (SGPT) 28 U/L (8-55); AST (SGOT) 27 U/L (5-34); Albumin 3.4 g/dL (3.4-4.8); Alkaline Phosphatase 104 U/L (40-110); Anion Gap 15 mmol/L (10-20); BUN (Urea Nitrogen) 34 mg/dL (9.8-20.1); Bilirubin, Total 0.5 mg/dL (0.2-1.2); Calc. Creatinine Clearance 24 mL/min (70-130); Calcium 9.4 mg/dL (7.8-10.44); Carbon Dioxide 21 mmol/L (23-31); Chloride 99 mmol/L (98-107); Globulin 2.8 g/dL (2.4-3.5); Glucose 117 mg/dL (80-115); Lipase 33 U/L (8-78); Phosphorus 4.7 mg/dL (2.3-4.7); Potassium 3.1 mmol/L (3.5-5.1); Protein, Total 6.2 g/dL (5.8-8.1); Sodium 132 mmol/L (136-145)
[2021-12-19] MEDS: Levothyroxine Sodium 88 MCG TAB PO SCH (06:15)
[2021-12-19] MEDS: Rosuvastatin 20 MG TAB PO SCH (08:21)
[2021-12-19] MEDS: NIFEdipine XL 60 MG TAB PO SCH ×2 (08:21→21:25)
[2021-12-19] MEDS: Heparin 5,000 UNITS/ML VIAL SC SCH ×3 (08:21→21:25)
[2021-12-19] MEDS: Clopidogrel Bisulfate 75 MG TAB PO SCH (08:22)
[2021-12-19] MEDS: Sodium Chloride 0.9% 1,000 ML IV SCH (08:22)
[2021-12-19] MEDS: Labetalol HCl 100 MG TAB PO SCH ×2 (08:22→21:25)
[2021-12-19] MEDS ORDERED: Lansoprazole 3 MG/ML ORAL SUSPENSION PO SCH (09:15)
[2021-12-19] MEDS ORDERED: Potassium Bicarbonate/Cit Ac 20 MEQ TAB PO SCH (09:15)
[2021-12-20] MEDS: Levothyroxine Sodium 88 MCG TAB PO SCH (05:46)
[2021-12-20 06:20] LABS: #Lymphocytes 1.9 thou/uL (1.20-3.40); #Monocytes 0.9 thou/uL (0.11-0.59); %Basophils 0.2 % (0.0-1.0); %Eosinophils 0.1 % (0.0-10.0); %Lymphocytes 16.4 % (21.0-51.0); %Monocytes 7.4 % (0.0-10.0); Anion Gap 13 mmol/L (10-20); BUN (Urea Nitrogen) 34 mg/dL (9.8-20.1); Calc. Creatinine Clearance 25 mL/min (70-130); Calcium 8.7 mg/dL (7.8-10.44); Carbon Dioxide 23 mmol/L (23-31); Chloride 98 mmol/L (98-107); Glucose 86 mg/dL (80-115); Hemoglobin 16.4 g/dL (12.0-16.0); Mean Corpuscular HGB CONC 33.5 g/dL (32.0-36.0); Mean Corpuscular Hemoglobin 32.2 pg (27.0-31.0); Mean Corpuscular Volume 96.1 fL (78.0-98.0); Mean Platelet Volume 8.4 fL (7.4-10.4); Platelet Count 155 thou/uL (130-400); Potassium 3.4 mmol/L (3.5-5.1); RBC Distribution Width 12.2 % (11.5-14.5); Red Blood Cell (RBC) Count 5.11 mill/uL (4.20-5.40); Sodium 131 mmol/L (136-145); White Blood Cell (WBC) Count 11.9 thou/uL (4.8-10.8)
[2021-12-20] MEDS ORDERED: Potassium Bicarbonate/Cit Ac 20 MEQ TAB PO SCH (06:30)
[2021-12-20] MEDS: NIFEdipine XL 60 MG TAB PO SCH (09:14)
[2021-12-20] MEDS: Labetalol HCl 100 MG TAB PO SCH (09:15)
[2021-12-20] MEDS: Rosuvastatin 20 MG TAB PO SCH (09:15)
[2021-12-20] MEDS: Heparin 5,000 UNITS/ML VIAL SC SCH (09:15)
[2021-12-20] MEDS: Clopidogrel Bisulfate 75 MG TAB PO SCH (09:15)
[2021-12-20 09:21] VITALS: BP 139/73; TEMP 98.9
== END 2021-12-20 12:22 | disposition home or self-care (01) | DRG 305 ==
LOC: ERS 14:28 → 2NO 16:10 → OBSVTOIN 12-17 11:47 → CCU 12-18 16:25 → 2NO 12-19 17:54
PROVIDERS: ADMIT Internal Medicine; ATTEND Family Medicine
DX: I16.0 Hypertensive urgency (principal); Z20.822 Contact with and (suspected) exposure to COVID-19; I5A Non-ischemic myocardial injury (non-traumatic); N18.4 Chronic kidney disease, stage 4 (severe); I50.32 Chronic diastolic (congestive) heart failure; E87.2 Acidosis; I31.3 Pericardial effusion (noninflammatory); R65.10 Systemic inflammatory response syndrome (SIRS) of non-infectious origin without acute organ dysfunction; E87.6 Hypokalemia; D75.1 Secondary polycythemia; E03.9 Hypothyroidism, unspecified; I25.10 Atherosclerotic heart disease of native coronary artery without angina pectoris; E78.5 Hyperlipidemia, unspecified; I13.0 Hypertensive heart and chronic kidney disease with heart failure and stage 1 through stage 4 chronic kidney disease, or unspecified chronic kidney disease; F32.A Depression, unspecified; N26.1 Atrophy of kidney (terminal); E78.00 Pure hypercholesterolemia, unspecified; Z86.73 Personal history of transient ischemic attack (TIA), and cerebral infarction without residual deficits; Z79.899 Other long term (current) drug therapy; Z79.890 Hormone replacement therapy; Z88.8 Allergy status to other drugs, medicaments and biological substances; Z90.710 Acquired absence of both cervix and uterus; Z90.721 Acquired absence of ovaries, unilateral; Z83.71 Family history of colonic polyps
CPT/HCPCS: 36415; 70450; 76770; 80048; 80053; 80061; 82088; 82570; 83497; 83605; 83690; 83735; 83835; 83880; 84100; 84156; 84244; 85025; 87040; 93005; 93306; 93975; 93976; 96372; 96374; C9113; G0378; J0360; J1644; J1650; J2405; J2550; J2765; J3480; J7030; J7050; Q0162; U0003; U0005